=== PATIENT | female | born 1955 | race Caucasian/White ===

== ENCOUNTER 2025-03-04 21:43 | Inpatient (IN) ==
[2025-03-04 22:12] LABS: Hematocrit (blood only) 42.4 % (37.0-47.0); Hemoglobin 14.8 g/dl (12.0-16.0); Immature Granulocytes # (auto) 0.03 K/uL (0.01-0.20); Immature Granulocytes % (auto) 0.3 %; Mean Corpuscular Hemoglobin 30.0 pg (25.0-34.0); Mean Corpuscular Volume 85.8 fL (80.0-100.0); Platelet Count 284 K/uL (130-400); RDW Standard Deviation 44.2 fL (36.4-46.3); Red Blood Count 4.94 M/uL (4.20-5.40); White Blood Count 11.98 K/ul (4.8-10.8)
--- NOTE | 2025-03-04 22:12 | Emergency Department Note ---
History of Present Illness General Chief complaint: TIA Symptoms Stated complaint: STROKE SYMPTOMS Time Seen by Provider: 03/04/25 21:50 History of Present Illness This 69-year-old female that had a CVA last year currently on Brilinta who went to [facility] and had right-sided weakness and bilateral right-sided visual loss who regained mobility in her right side but the vision did not return who presents to the ER for strokelike symptoms for the past 2 hours. Patient states about 2 hours ago she had increasing numbness and weakness in her right side and right face. Patient also difficulty with ambulation. She continues to smoke. She is on Brilinta. Patient also complains of severe chest pain. She is on 2 L of oxygen at night for her COPD. No prior heart attack. Patient denies fever, chills, cough, congestion, new visual loss. Patient had difficulty with ambulation. She feels unsteady with her gait. This is also new. Patient denies abdominal pain, fever, chills, flulike illness. No history of heart attack. Home Medications Medication Instructions Recorded Confirmed Type cetirizine 10 mg capsule (Zyrtec) 10 mg PO DAILY 04/06/18 03/04/25 History pregabalin 150 mg capsule (Lyrica) 150 mg PO BID 04/06/18 03/04/25 History oxycodone 10 mg tablet 10 mg PO Q8 PRN Pain 04/10/18 03/04/25 History potassium chloride 10 mEq 10 meq PO DAILY 04/10/18 03/04/25 History tablet,extended release(part/cryst) (Klor-Con M) albuterol sulfate 90 mcg/actuation 2 puffs inhalation Q6H PRN trouble 05/30/18 03/04/25 History breath activated powder inhaler breathing diphenhydramine HCl 25 mg capsule 25 mg PO Q4H PRN itchiness 05/30/18 03/04/25 History (Benadryl) lactobacillus combination no.8 3 3,000 mmu cells PO DAILY 05/30/18 03/04/25 History billion cell capsule (Adult Probiotic) loperamide 2 mg capsule (Imodium 2 mg PO Q4H PRN loose stool 05/30/18 03/04/25 History A-D) cholecalciferol (vitamin D3) 50 4,000 units PO DAILY 05/24/19 03/04/25 History mcg (2,000 unit) capsule promethazine 25 mg tablet 25 mg PO Q6H PRN Nausea And 05/24/19 03/04/25 History Vomiting magnesium hydroxide 400 mg/5 mL 5 ml PO DAILY PRN Constipation 05/06/21 03/04/25 History oral suspension (Milk of Magnesia) sumatriptan succinate 6 mg/0.5 mL 6 mg (0.5 mL) subcut ONCE PRN 10/01/21 03/04/25 Rx subcutaneous pen injector migraine headache #1 mL hydrochlorothiazide 12.5 mg capsule 12.5 mg PO DAILY 11/02/21 03/04/25 History propranolol 120 mg capsule,24 240 mg (2 x 120 mg) PO HS #60 caps 12/13/21 03/04/25 Rx hr,extended release asciminib 20 mg tablet (Scemblix) 20 mg PO BID 11/22/22 03/04/25 History tizanidine 4 mg capsule 4 mg PO BID PRN spasms 12/19/23 03/04/25 History ticagrelor 90 mg tablet (Brilinta) 90 mg PO BID 06/13/24 03/04/25 History pravastatin 10 mg tablet 10 mg PO DAILY 02/06/25 03/04/25 History tirzepatide 2.5 mg/0.5 mL 7.5 mg subcut .Weekly 02/06/25 03/04/25 History subcutaneous pen injector (Mounjaro) fremanezumab-vfrm 225 mg/1.5 mL 225 mg subcut MONTHLY 03/04/25 03/04/25 History subcutaneous auto-injector (Ajovy) lorazepam 1 mg tablet (Ativan) 1 mg PO TID PRN Anxiety 03/04/25 03/04/25 History rabeprazole 20 mg PO BID 03/04/25 03/04/25 History Allergies Allergy/AdvReac Type Severity Reaction Status Date / Time bacitracin Allergy Severe blisters Verified 02/06/25 15:05 Cephalosporins Allergy Severe DYSPNEA Verified 02/06/25 15:05 hydromorphone Allergy Severe DYSPNEA Verified 02/06/25 15:05 Penicillins Allergy Severe HIVES;DYSPN Verified 02/06/25 15:05 EA Sulfa (Sulfonamide Allergy Severe HIVES;DYSPNEA Verified 02/06/25 15:05 Antibiotics) (PT STATES SHE HAS TAKEN CELEBREX W/O RXN) chlorpheniramine Allergy Unknown UNABLE TO Verified 02/06/25 15:05 URINATE nickel Allergy Unknown RASH Verified 02/06/25 15:05 phenylephrine Allergy Unknown UNABLE TO Verified 02/06/25 15:05 URINATE phenylpropanolamine Allergy Unknown UNABLE TO Verified 02/06/25 15:05 URINATE phenyltoloxamine Allergy Unknown UNABLE TO Verified 02/06/25 15:05 URINATE adhesive AdvReac Intermediate RASH;ITCHIN Verified 02/06/25 15:05 G aspirin AdvReac Mild STOMACH Verified 02/06/25 15:05 BURNING nilotinib [From Tasigna] AdvReac constipatio Verified 02/06/25 15:05 n Past Med/Surg History Problem List (Updated 03/05/25 @ 09:48 by Mahamed Mckeon MD) Depression with anxiety Right sided weakness Right sided numbness Homonymous 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 Chronic pain Current smoker Stroke-like symptoms Acute CVA (cerebrovascular accident) (Acute) History of bilateral total hip arthroplasty (Chronic) Hx of total knee arthroplasty (Chronic) History of chemotherapy (Chronic) Diastolic dysfunction (Chronic) Hyperlipidemia (Chronic) Hypertension (Chronic) Medical History Sepsis Intra-abdominal abscess Intra-abdominal abscess Hypokalemia Headache Headache Arthritis Stomach problems Pneumonia Bronchitis Asthma Intractable migraine with aura without status migrainosus Leukemia Opioid dependence Lumbar facet joint syndrome Postlaminectomy syndrome of lumbosacral region On home oxygen therapy Herpes zoster involving cervical dermatome Migraine Chronic myeloid leukemia Cervicalgia Chronic migraine Surgical History History of cholecystectomy History of lumbar laminectomy S/P ovarian cystectomy S/P tonsillectomy Family History (Updated 03/05/25 @ 09:41 by Mahamed Mckeon MD) Father , in his 40s of a brain tumor (uncertain type) Brain tumor Aunt Breast cancer Mother , in her early 90s without significant chronic illness No problems noted. Social History (Updated 03/05/25 @ 09:41 by Mahamed Mckeon MD) Smoking Status: Current every day smoker Tobacco Type: Cigarettes Age Started Using Tobacco: 11; packs per day: 0.5; Cigarettes Per Day: 0.5 pk/day; Hx Alcohol Use: No Hx Substance Use: No Preferred Language: American Communication Ability: Effective Visual Impairment: No Limitations Hearing Ability: Normal Geotechnician Required: No Beliefs That Will Affect Care: None marital status: Legally Current Living Situation: Family Current Living Situation Comment: Jyoti- daughter current occupational status: disabled current occupation: Stop working 1998 after a work incident Feels Safe at Home: Yes Safety Concerns: Feels Safe At This Time Assistive Devices: Denture - Upper, Denture - Lower, Oxygen - at Night and Walker Review of Systems A total of 10 systems reviewed and were otherwise negative Physical Exam Vital Signs Vital Signs - 24 hr 03/04/25 21:44 03/04/25 21:54 03/04/25 22:08 Temperature 37 C Temperature Source Oral Pulse Rate 85 80 81 Pulse Rate [Apical] Pulse Rate from SpO2 Sensor Respiratory Rate 22 Respiratory Effort / Characteristics Respiratory Depth Respiratory Pattern Blood Pressure 175/108 H Blood Pressure [Right Arm] Blood Pressure Mean 130 Blood Pressure Mean [Right Arm] Blood Pressure Position [Right Arm] Pulse Oximetry 95 Oxygen Delivery Method Room Air Oxygen Flow Rate Sepsis Recent Fever Within 48 Hours No Sepsis New/Unexplained Change in Mental Status No Sepsis Action Taken by Nursing No Action Required 03/04/25 22:09 03/04/25 22:10 03/04/25 22:10 Temperature 36.8 C Temperature Source Oral Pulse Rate Pulse Rate [Apical] 80 Pulse Rate from SpO2 Sensor Respiratory Rate 20 Respiratory Effort / Characteristics Non-Labored Spontaneous Respiratory Depth Normal Respiratory Pattern Regular Blood Pressure 173/95 H 173/95 H Blood Pressure [Right Arm] 173/95 H Blood Pressure Mean 116 116 Blood Pressure Mean [Right Arm] 121 Blood Pressure Position [Right Arm] Semi-fowlers Pulse Oximetry 91 Oxygen Delivery Method Room Air Oxygen Flow Rate Sepsis Recent Fever Within 48 Hours Sepsis New/Unexplained Change in Mental Status Sepsis Action Taken by Nursing 03/04/25 22:12 03/04/25 22:15 03/04/25 22:25 Temperature Temperature Source Pulse Rate 81 90 Pulse Rate [Apical] 79 Pulse Rate from SpO2 Sensor 81 78 Respiratory Rate 22 20 13 Respiratory Effort / Characteristics Non-Labored Spontaneous Respiratory Depth Normal Respiratory Pattern Regular Blood Pressure Blood Pressure [Right Arm] 169/93 H Blood Pressure Mean Blood Pressure Mean [Right Arm] 118 Blood Pressure Position [Right Arm] Semi-fowlers Pulse Oximetry 93 93 96 Oxygen Delivery Method Room Air Oxygen Flow Rate Sepsis Recent Fever Within 48 Hours Sepsis New/Unexplained Change in Mental Status Sepsis Action Taken by Nursing 03/04/25 22:40 03/04/25 22:48 03/04/25 22:55 Temperature Temperature Source Pulse Rate Pulse Rate [Apical] 77 78 76 Pulse Rate from SpO2 Sensor Respiratory Rate 20 15 14 Respiratory Effort / Characteristics Non-Labored Spontaneous Non-Labored Spontaneous Non-Labored Spontaneous Respiratory Depth Normal Normal Normal Respiratory Pattern Regular Regular Regular Blood Pressure Blood Pressure [Right Arm] 168/103 H 176/122 H 176/122 H Blood Pressure Mean Blood Pressure Mean [Right Arm] 124 140 140 Blood Pressure Position [Right Arm] Semi-fowlers Semi-fowlers Semi-fowlers Pulse Oximetry 100 100 95 Oxygen Delivery Method Room Air Room Air Room Air Oxygen Flow Rate Sepsis Recent Fever Within 48 Hours Sepsis New/Unexplained Change in Mental Status Sepsis Action Taken by Nursing 03/04/25 23:01 03/04/25 23:13 03/04/25 23:13 Temperature 36.8 C 36.8 C Temperature Source Oral Oral Pulse Rate Pulse Rate [Apical] 79 79 77 Pulse Rate from SpO2 Sensor Respiratory Rate 20 16 16 Respiratory Effort / Characteristics Non-Labored Spontaneous Non-Labored Spontaneous Respiratory Depth Normal Normal Respiratory Pattern Regular Regular Blood Pressure Blood Pressure [Right Arm] 174/100 H 142/104 H 174/100 H Blood Pressure Mean Blood Pressure Mean [Right Arm] 124 116 124 Blood Pressure Position [Right Arm] Semi-fowlers Semi-fowlers Semi-fowlers Pulse Oximetry 94 95 95 Oxygen Delivery Method Room Air Room Air Room Air Oxygen Flow Rate Sepsis Recent Fever Within 48 Hours Sepsis New/Unexplained Change in Mental Status Sepsis Action Taken by Nursing 03/04/25 23:28 03/04/25 23:43 03/04/25 23:43 Temperature 36.8 C 36.8 C 36.8 C Temperature Source Oral Oral Oral Pulse Rate Pulse Rate [Apical] 88 83 83 Pulse Rate from SpO2 Sensor Respiratory Rate 17 17 17 Respiratory Effort / Characteristics Non-Labored Spontaneous Non-Labored Spontaneous Non-Labored Spontaneous Respiratory Depth Normal Normal Normal Respiratory Pattern Regular Regular Regular Blood Pressure Blood Pressure [Right Arm] 186/82 H 160/90 H 148/87 H Blood Pressure Mean Blood Pressure Mean [Right Arm] 116 113 107 Blood Pressure Position [Right Arm] Semi-fowlers Semi-fowlers Semi-fowlers Pulse Oximetry 95 95 95 Oxygen Delivery Method Room Air Room Air Room Air Oxygen Flow Rate Sepsis Recent Fever Within 48 Hours Sepsis New/Unexplained Change in Mental Status Sepsis Action Taken by Nursing 03/04/25 23:58 03/05/25 00:13 03/05/25 00:28 Temperature 36.8 C 36.7 C 36.7 C Temperature Source Oral Oral Oral Pulse Rate Pulse Rate [Apical] 81 79 83 Pulse Rate from SpO2 Sensor Respiratory Rate 16 16 17 Respiratory Effort / Characteristics Non-Labored Spontaneous Non-Labored Spontaneous Non-Labored Spontaneous Respiratory Depth Normal Normal Normal Respiratory Pattern Regular Regular Regular Blood Pressure Blood Pressure [Right Arm] 131/92 154/95 H 134/85 Blood Pressure Mean Blood Pressure Mean [Right Arm] 105 114 101 Blood Pressure Position [Right Arm] Semi-fowlers Semi-fowlers Semi-fowlers Pulse Oximetry 95 92 97 Oxygen Delivery Method Room Air Room Air Nasal Cannula Oxygen Flow Rate 2 Sepsis Recent Fever Within 48 Hours Sepsis New/Unexplained Change in Mental Status Sepsis Action Taken by Nursing 03/05/25 00:43 03/05/25 00:58 03/05/25 01:13 Temperature 36.7 C 36.7 C 36.7 C Temperature Source Oral Oral Oral Pulse Rate Pulse Rate [Apical] 81 82 83 Pulse Rate from SpO2 Sensor Respiratory Rate 17 17 17 Respiratory Effort / Characteristics Non-Labored Spontaneous Non-Labored Spontaneous Non-Labored Spontaneous Respiratory Depth Normal Normal Normal Respiratory Pattern Regular Regular Regular Blood Pressure Blood Pressure [Right Arm] 154/94 H 149/93 H 141/83 H Blood Pressure Mean Blood Pressure Mean [Right Arm] 114 111 102 Blood Pressure Position [Right Arm] Semi-fowlers Semi-fowlers Semi-fowlers Pulse Oximetry 97 97 98 Oxygen Delivery Method Nasal Cannula Nasal Cannula Nasal Cannula Oxygen Flow Rate 2 2 2 Sepsis Recent Fever Within 48 Hours Sepsis New/Unexplained Change in Mental Status Sepsis Action Taken by Nursing 03/05/25 01:43 03/05/25 02:06 03/05/25 02:13 Temperature 36.7 C 36.7 C Temperature Source Oral Oral Pulse Rate 78 Pulse Rate [Apical] 81 76 Pulse Rate from SpO2 Sensor Respiratory Rate 17 16 Respiratory Effort / Characteristics Non-Labored Spontaneous Non-Labored Spontaneous Respiratory Depth Normal Normal Respiratory Pattern Regular Regular Blood Pressure Blood Pressure [Right Arm] 132/93 147/85 H Blood Pressure Mean Blood Pressure Mean [Right Arm] 106 105 Blood Pressure Position [Right Arm] Semi-fowlers Semi-fowlers Pulse Oximetry 98 97 Oxygen Delivery Method Nasal Cannula Nasal Cannula Oxygen Flow Rate 2 2 Sepsis Recent Fever Within 48 Hours Sepsis New/Unexplained Change in Mental Status Sepsis Action Taken by Nursing 03/05/25 02:43 Temperature 36.7 C Temperature Source Oral Pulse Rate Pulse Rate [Apical] 73 Pulse Rate from SpO2 Sensor Respiratory Rate 20 Respiratory Effort / Characteristics Non-Labored Spontaneous Respiratory Depth Normal Respiratory Pattern Regular Blood Pressure Blood Pressure [Right Arm] 133/76 Blood Pressure Mean Blood Pressure Mean [Right Arm] 95 Blood Pressure Position [Right Arm] Semi-fowlers Pulse Oximetry 96 Oxygen Delivery Method Nasal Cannula Oxygen Flow Rate 2 Sepsis Recent Fever Within 48 Hours Sepsis New/Unexplained Change in Mental Status Sepsis Action Taken by Nursing VITALS: Vitals are noted on the nurse's note and reviewed by myself. Vital signs reviewed. GENERAL: Pleasant female with daughter present who assists with the history, in no acute distress, nondiaphoretic, well-developed well-nourished. SKIN: The skin was without rashes, erythema, edema, or bruising. There is no tenting of the skin. Capillary reflex less than 2 seconds. HEAD: Normocephalic atraumatic. EARS: External auditory canals clear EYES: Pupils equal round and reactive to light and accommodation. Conjunctivae without injection, sclerae without icterus. Extraocular movements intact. NOSE: Patent, no discharge. MOUTH: Mucous membranes moist. Pharynx without erythema or exudate. Uvula midline. Airway patent. Tongue does not deviate. NECK: Supple without nuchal rigidity. No lymphadenopathy. No thyromegaly. Cervical spine is nontender. No JVD. HEART: Regular rate and rhythm LUNGS: Clear to auscultation bilaterally without wheezes, rales or rhonchi. No retractions or accessory muscle use. ABDOMEN: Positive bowel sounds x 4. Normal tympanic percussion. Soft, nontender, without masses or organomegaly. Florian sign negative. No guarding or rebound tenderness. No CVA tenderness MUSCULOSKELETAL: No muscle atrophy, erythema, or edema noted. Right sided weakness to the arm and leg. NEURO: Patient was alert and oriented to person place and time. Patient's right arm does drift but does not touch the bed. Patient's left leg drifts and touches the bed. Cerebellar exam intact. No pronator drift. Decreased sensation to the right side of the face arm and leg, the rest of the body with normal sensation to light and sharp touch. No other focal neurological deficits. NIH of 4 Course Administered Medications Acetaminophen (Acetaminophen 325 Mg Tab) 650 mg PO Q4H PRN PRN Reason: Pain or Fever Stop: 04/04/25 04:00 Last Admin: 03/05/25 13:22 Dose: 650 mg Documented By: TUTUK Cetirizine HCl (Cetirizine Hcl 10 Mg Tablet) 10 mg PO DAILY KENNEY Stop: 04/04/25 08:59 Last Admin: 03/05/25 09:03 Dose: 10 mg Documented By: MARGIE Insulin Aspart (Insulin Aspart Per Unit Charge) 0 units SC Q6 KENNEY Stop: 04/04/25 05:59 Last Admin: 03/06/25 00:42 Dose: Not Given Documented By: TP Co-signed By: MAURICE Admin: 03/05/25 17:51 Dose: Not Given Documented By: Admin: 03/05/25 12:16 Dose: Not Given Documented By: Admin: 03/05/25 06:42 Dose: Not Given Documented By: TP Co-signed By: LEÓN Lorazepam (Lorazepam 1 Mg Tab) 1 mg PO TID PRN PRN Reason: Anxiety Stop: 04/04/25 20:42 Last Admin: 03/05/25 21:41 Dose: 1 mg Documented By: TP Oxycodone HCl (Oxycodone Hcl Ir 5 Mg Tab (Immediate Release)) 5 mg PO Q8 PRN PRN Reason: Pain Stop: 03/19/25 12:29 Last Admin: 03/05/25 21:41 Dose: 5 mg Documented By: Admin: 03/05/25 14:00 Dose: 5 mg Documented By: TUTUK Pravastatin Sodium (Pravastatin Sod 10 Mg Tab) 10 mg PO DAILY KENNEY Stop: 04/04/25 08:59 Last Admin: 03/05/25 09:03 Dose: 10 mg Documented By: TUTUK Pregabalin (Pregabalin 150 Mg Cap) 150 mg PO BID KENNEY Stop: 04/04/25 08:59 Last Admin: 03/05/25 20:15 Dose: 150 mg Documented By: Admin: 03/05/25 09:03 Dose: 150 mg Documented By: MARGIE Propranolol HCl (Propranolol Hcl 60 Mg [place]) 240 mg PO HS KENNEY Stop: 04/04/25 20:59 Last Admin: 03/05/25 20:15 Dose: 240 mg Documented By: TP Discontinued Medications Acetaminophen (Acetaminophen 1000 Mg/100 Ml Iv) Confirm Administered Dose 1,000 mg IV .STK-MED ONE Stop: 03/04/25 23:00 Last Admin: 03/04/25 23:02 Dose: Not Given Documented By: SHIVAM Acetaminophen/Butalbital/Caffeine (Butalbital/Acetamin/Caffeine Tab) 1 tab PO NOW STA Stop: 03/05/25 14:29 Last Admin: 03/05/25 14:52 Dose: 1 tab Documented By: MARGIE Gadobutrol (Gadobutrol 65ml Vial) 8 ml IV ONCE ONE Stop: 03/05/25 05:08 Last Admin: 03/05/25 05:07 Dose: 8 ml Documented By: LIIBA Tenecteplase 20 mg/ Syringe 4 mls @ 0 mls/min IV NOW STA Stop: 03/04/25 22:55 Last Admin: 03/04/25 23:13 Dose: 60 mls/min Documented By: PAM Co-signed By: BRADLEY Acetaminophen (Ofirmev) 1,000 mg in 100 mls @ 400 mls/hr IV NOW STA Stop: 03/04/25 23:14 Last Infusion: 03/04/25 23:24 Dose: Infused Documented By: Admin: 03/04/25 23:02 Dose: 400 mls/hr Documented By: SHIVAM Sodium Chloride (Nss) 500 mls @ 999 mls/hr IV .Q31M ONE Stop: 03/04/25 23:43 Last Infusion: 03/04/25 23:58 Dose: Infused Documented By: Admin: 03/04/25 23:34 Dose: 999 mls/hr Documented By: PAM Promethazine HCl (Phenergan) 25 mg in 51 mls @ 204 mls/hr IV NOW STA Stop: 03/04/25 23:52 Last Infusion: 03/05/25 00:13 Dose: Infused Documented By: Admin: 03/04/25 23:58 Dose: 204 mls/hr Documented By: PAM Sodium Chloride (Nss) 1,000 mls @ 125 mls/hr IV .Q8H KENNEY Stop: 03/08/25 03:43 Last Admin: 03/05/25 04:58 Dose: Not Given Documented By: TP Ioversol (Optiray 320 125ml) 120 ml IV ONCE ONE Stop: 03/04/25 22:16 Last Admin: 03/04/25 22:15 Dose: 120 ml Documented By: MCKAYLA Morphine Sulfate (Morphine Sulfate 4 Mg/Ml 1 Ml Carp\Vial) 4 mg IV NOW STA Stop: 03/04/25 23:29 Last Admin: 03/04/25 23:33 Dose: 4 mg Documented By: PAM Morphine Sulfate (Morphine Sulfate 4 Mg/Ml 1 Ml Carp\Vial) 4 mg IV NOW STA Stop: 03/05/25 00:18 Last Admin: 03/05/25 00:24 Dose: 4 mg Documented By: PAM Morphine Sulfate (Morphine Sulfate 4 Mg/Ml 1 Ml Carp\Vial) 4 mg IV NOW STA Stop: 03/05/25 02:17 Last Admin: 03/05/25 02:27 Dose: 4 mg Documented By: PAM Ondansetron HCl (Ondansetron Inj 2 Mg/Ml 2 Ml Vial) 4 mg IV NOW STA Stop: 03/04/25 23:01 Last Admin: 03/04/25 23:04 Dose: 4 mg Documented By: SHIVAM Ondansetron HCl (Ondansetron Inj 2 Mg/Ml 2 Ml Vial) 4 mg IV NOW STA Stop: 03/04/25 23:29 Last Admin: 03/04/25 23:37 Dose: Not Given Documented By: PAM Oxycodone HCl (Oxycodone Hcl Ir 5 Mg Tab (Immediate Release)) 10 mg PO Q8 PRN PRN Reason: Pain Stop: 03/19/25 03:43 Last Admin: 03/05/25 04:34 Dose: 10 mg Documented By: FATOUMATA Pregabalin (Pregabalin 150 Mg Cap) 150 mg PO NOW STA Stop: 03/05/25 04:01 Last Admin: 03/05/25 04:34 Dose: 150 mg Documented By: FATOUMATA Critical Care Time Critical Care Time: Yes Total Critical Care Time: 65 I have personally spent 65 minutes of critical care time in the direct management of this patient. This includes bedside care, interpretation of diagnostic studies, and testing, discussion with consultants, patient, and family members, and other required patient management activities. This 65 minutes is in excess of all separately billable procedures. Medical Decision Making Medical Records Attestation: I reviewed the patient's medical records. Home Medications Current Medication List: was personally reviewed by me Laboratory Data Attestation: I reviewed the patient's lab results. 03/05/25 06:02 03/05/25 06:02 Lab Results 03/04/25 03/04/25 03/04/25 Range/Units 21:52 21:54 21:55 WBC 11.98 H (4.8-10.8) K/ul RBC 4.94 (4.20-5.40) M/uL Hgb 14.8 (12.0-16.0) g/dl POC Hgb 15.0 (12.0-16.0) g/dl Hct 42.4 (37.0-47.0) % POC Hct 44 (37-47) % MCV 85.8 (80.0-100.0) fL MCH 30.0 (25.0-34.0) pg MCHC 34.9 (32.0-36.0) g/dL RDW Std Deviation 44.2 (36.4-46.3) fL RDW Coeff of Fan 14.2 (11.5-14.5) % Plt Count 284 (130-400) K/uL MPV 12.1 (9.4-12.4) fL Immature Gran % (Auto) 0.3 % Neut % (Auto) 67.5 % Lymph % (Auto) 18.3 % [place] % (Auto) 9.8 % Eos % (Auto) 3.0 % Baso % (Auto) 1.1 % Neut # (Auto) 8.10 H (1.40-6.50) K/uL Lymph # (Auto) 2.19 (1.20-3.40) K/uL [place] # (Auto) 1.17 H (0.11-0.59) K/uL Eos # (Auto) 0.36 (0.00-0.50) K/uL Baso # (Auto) 0.13 (0.00-0.20) K/uL Immature Gran # (Auto) 0.03 (0.01-0.20) K/uL PT 10.4 (9.0-12.0) Seconds INR 1.0 (0.9-1.1) APTT 26 (21-31) Seconds PTT Ratio 1.0 POC Sodium 138 (135-144) mmol/L Sodium 137 (136-145) mmol/L POC Potassium 3.8 (3.3-5.0) mmol/L Potassium 3.7 (3.5-5.1) mmol/L POC Chloride 96 L (101-112) mmol/L Chloride 97 L (98-107) mmol/L Carbon Dioxide 33 H (21-32) mmol/L POC Total CO2 31 (24-31) mmol/L Anion Gap 7 (3-11) POC Anion Gap 17.0 (16-25) mmol/L POC BUN 13 (7-18) mg/dl BUN 13 (6-23) mg/dl Creatinine 1.11 (0.6-1.2) mg/dl POC Creatinine 1.2 (0.6-1.3) mg/dl Est Cr Clr Drug Dosing 50.0 ml/min eGFR 53.47 BUN/Creatinine Ratio 11.7 (10-20) Glucose 133 H (70-99(Fasting)) mg/dl POC Glucose 121 H (70-99) mg/dl POC Glucose (other) 131 H (70-99) mg/dl Calcium 9.9 (8.6-10.3) mg/dl POC Ioniz Calcium Gabo 1.16 (1.12-1.32) mmol/l Magnesium 1.8 (1.7-2.4) mg/dl Total Bilirubin 0.5 (0.2-1.0) mg/dl AST 15 (13-39) U/L ALT 10 (7-52) U/L Alkaline Phosphatase 92 (34-104) U/L Troponin I High Sens 4.2 (0-14) pg/ml Total Protein 7.7 (6.0-8.3) gm/dl Albumin 4.0 (3.4-5.0) gm/dl Globulin 3.7 (2.5-4.0) gm/dl Albumin/Globulin Ratio 1.1 (0.9-2) Urine Color Urine Appearance (Clear) Urine pH (4.5-7.5) Ur Specific [place] (1.000-1.030) Urine Protein (Negative) Urine Glucose (UA) (Negative) Urine Ketones (Negative) Urine Blood (Negative) Urine Nitrite (Negative) Urine Bilirubin (Negative) Urine Urobilinogen (Negative) Ur Leukocyte Esterase (Negative) Urine Comment Blood Type Antibody Screen 03/04/25 03/05/25 Range/Units 21:57 02:29 WBC (4.8-10.8) K/ul RBC (4.20-5.40) M/uL Hgb (12.0-16.0) g/dl POC Hgb (12.0-16.0) g/dl Hct (37.0-47.0) % POC Hct (37-47) % MCV (80.0-100.0) fL MCH (25.0-34.0) pg MCHC (32.0-36.0) g/dL RDW Std Deviation (36.4-46.3) fL RDW Coeff of Fan (11.5-14.5) % Plt Count (130-400) K/uL MPV (9.4-12.4) fL Immature Gran % (Auto) % Neut % (Auto) % Lymph % (Auto) % [place] % (Auto) % Eos % (Auto) % Baso % (Auto) % Neut # (Auto) (1.40-6.50) K/uL Lymph # (Auto) (1.20-3.40) K/uL [place] # (Auto) (0.11-0.59) K/uL Eos # (Auto) (0.00-0.50) K/uL Baso # (Auto) (0.00-0.20) K/uL Immature Gran # (Auto) (0.01-0.20) K/uL PT (9.0-12.0) Seconds INR (0.9-1.1) APTT (21-31) Seconds PTT Ratio POC Sodium (135-144) mmol/L Sodium (136-145) mmol/L POC Potassium (3.3-5.0) mmol/L Potassium (3.5-5.1) mmol/L POC Chloride (101-112) mmol/L Chloride (98-107) mmol/L Carbon Dioxide (21-32) mmol/L POC Total CO2 (24-31) mmol/L Anion Gap (3-11) POC Anion Gap (16-25) mmol/L POC BUN (7-18) mg/dl BUN (6-23) mg/dl Creatinine (0.6-1.2) mg/dl POC Creatinine (0.6-1.3) mg/dl Est Cr Clr Drug Dosing ml/min eGFR BUN/Creatinine Ratio (10-20) Glucose (70-99(Fasting)) mg/dl POC Glucose (70-99) mg/dl POC Glucose (other) (70-99) mg/dl Calcium (8.6-10.3) mg/dl POC Ioniz Calcium [place] (1.12-1.32) mmol/l Magnesium (1.7-2.4) mg/dl Total Bilirubin (0.2-1.0) mg/dl AST (13-39) U/L ALT (7-52) U/L Alkaline Phosphatase (34-104) U/L Troponin I High Sens (0-14) pg/ml Total Protein (6.0-8.3) gm/dl Albumin (3.4-5.0) gm/dl Globulin (2.5-4.0) gm/dl Albumin/Globulin Ratio (0.9-2) Urine Color Yellow Urine Appearance Clear (Clear) Urine pH 5.5 (4.5-7.5) Ur Specific [place] > 1.045 H (1.000-1.030) Urine Protein Negative (Negative) Urine Glucose (UA) Negative (Negative) Urine Ketones Negative (Negative) Urine Blood Negative (Negative) Urine Nitrite Negative (Negative) Urine Bilirubin Negative (Negative) Urine Urobilinogen Negative (Negative) Ur Leukocyte Esterase Negative (Negative) Urine Comment Blood Type B Positive Antibody Screen NEGATIVE Imaging Data Attestation: I personally reviewed and interpreted this imaging study as follows: Radiologist's Impression: Chest CTA 03/04/25 21:55 Exam(s): CTA CHEST IV Amt: 120 ml [id number] EXAM: CT Angiography Chest With Intravenous Contrast CLINICAL HISTORY: Reason for exam: PE. TECHNIQUE: Axial computed tomographic angiography images of the chest with intravenous contrast. CTDI is 36.31 mGy and DLP is 1824.73 mGy-cm. Automated exposure control was utilized for the study. A dose lowering technique was utilized adhering to the principles of ALARA. MIP reconstructed images were created and reviewed. COMPARISON: No relevant prior studies available. FINDINGS: Pulmonary arteries: Unremarkable. No pulmonary embolism. Aorta: No acute findings. No thoracic aortic aneurysm. Lungs: Unremarkable. No mass. No consolidation. Pleural space: Unremarkable. No significant effusion. No pneumothorax. Heart: Unremarkable. No cardiomegaly. No significant pericardial effusion. No evidence of RV dysfunction. Bones/joints: No acute fracture. No dislocation. Soft tissues: Unremarkable. Lymph nodes: Unremarkable. No enlarged lymph nodes. IMPRESSION: Normal chest CTA. No pulmonary embolism. Electronically signed by: Donato Ravi MD 03/04/25 22:58 PM Chest X-Ray 03/04/25 21:55 Exam(s): XR CXR 1 VIEW EXAM: XR Chest, 1 View CLINICAL HISTORY: Reason for exam: neuro deficit, acute stroke suspected. TECHNIQUE: Frontal view of the chest. COMPARISON: No relevant prior studies available. FINDINGS: Lungs: Unremarkable. No consolidation. Pleural space: Unremarkable. No pneumothorax. Heart: Unremarkable. No cardiomegaly. Mediastinum: Unremarkable. Normal mediastinal contour. Bones/joints: Unremarkable. No acute fracture. IMPRESSION: Normal chest x-ray. Electronically signed by: Donato Ravi MD 03/05/25 00:[address] 03/04/25 21:55 CR Exam(s): CT HEAD Without Contrast EXAM: CT Head Without Intravenous Contrast CLINICAL HISTORY: Reason for exam: neuro deficit, acute stroke suspected. TECHNIQUE: Axial computed tomography images of the head/brain without intravenous contrast. CTDI is 36.31 mGy and DLP is 1824.73 mGy-cm. Automated exposure control was utilized for the study. A dose lowering technique was utilized adhering to the principles of ALARA. COMPARISON: 03/01/2014 FINDINGS: Brain: Chronic appearing left occipital lobe infarct. No hemorrhage. No significant white matter disease. Ventricles: Unremarkable. No ventriculomegaly. Bones/joints: Unremarkable. No acute fracture. Soft tissues: Unremarkable. Sinuses: Unremarkable as visualized. No acute sinusitis. Mastoid air cells: Unremarkable as visualized. No mastoid effusion. IMPRESSION: No acute findings in the head/brain. Chronic left occipital lobe and Communications: Call Doctor Stroke Electronically signed by: Donato Ravi MD 03/04/25 22:32 PM Head CTA 03/04/25 21:55 CR Exam(s): CTA HEAD With Contrast IV Amt: 120 ml EXAM: CT Angiography Head With Intravenous Contrast CLINICAL HISTORY: Reason for exam: neuro deficit, acute stroke suspected. TECHNIQUE: Axial computed tomographic angiography images of the head with intravenous contrast. CTDI is 36.31 mGy and DLP is 1824.73 mGy-cm. Automated exposure control was utilized for the study. A dose lowering technique was utilized adhering to the principles of ALARA. MIP reconstructed images were created and reviewed. CONTRAST: Patient received 120 ml [id number] of IV contrast COMPARISON: No relevant prior studies available. FINDINGS: Right internal carotid artery: No acute findings. Intracranial segment is patent with no significant stenosis. No aneurysm. Right anterior cerebral artery: Unremarkable. No occlusion or significant stenosis. No aneurysm. Right middle cerebral artery: Unremarkable. No occlusion or significant stenosis. No aneurysm. Right posterior cerebral artery: Unremarkable. No occlusion or significant stenosis. No aneurysm. Right vertebral artery: Unremarkable as visualized. Left internal carotid artery: No acute findings. Intracranial segment is patent with no significant stenosis. No aneurysm. Left anterior cerebral artery: Unremarkable. No occlusion or significant stenosis. No aneurysm. Left middle cerebral artery: Unremarkable. No occlusion or significant stenosis. No aneurysm. Left posterior cerebral artery: Unremarkable. No occlusion or significant stenosis. No aneurysm. Left vertebral artery: Unremarkable as visualized. Basilar artery: Unremarkable. No occlusion or significant stenosis. No aneurysm. IMPRESSION: Normal head CTA. Communications: Call Doctor Stroke Electronically signed by: Donato Ravi MD 03/04/25 22:27 PM Neck CTA 03/04/25 21:55 CR Exam(s): CTA NECK With Contrast IV Amt: 120 ml [id number] EXAM: CT Angiography Neck With Intravenous Contrast CLINICAL HISTORY: Reason for exam: neuro deficit, acute stroke suspected. TECHNIQUE: Routine carotid CT angiography protocol was performed with intravenous contrast. NASCET criteria using the distal ICAs for comparison were used for evaluation of stenoses. CTDI is 36.31 mGy and DLP is 1824.73 mGy-cm. Automated exposure control was utilized for the study. A dose lowering technique was utilized adhering to the principles of ALARA. MIP reconstructed images were created and reviewed. CONTRAST: Patient received 120 ml of IV contrast COMPARISON: None. FINDINGS: VASCULATURE: Right common carotid artery: Unremarkable. No occlusion or significant stenosis. No dissection. Right internal carotid artery: Unremarkable. Extracranial segment is patent with no occlusion or significant stenosis. No dissection. Right external carotid artery: Unremarkable. No occlusion. Right vertebral artery: Unremarkable. No occlusion or significant stenosis. No dissection. Left common carotid artery: Unremarkable. No occlusion or significant stenosis. No dissection. Left internal carotid artery: Unremarkable. Extracranial segment is patent with no occlusion or significant stenosis. No dissection. Left external carotid artery: Unremarkable. No occlusion. Left vertebral artery: Unremarkable. No occlusion or significant stenosis. No dissection. NECK: Bones/joints: Unremarkable. No acute fracture. Soft tissues: Unremarkable. Lung apices: Clear. CAROTID STENOSIS REFERENCE USING NASCET CRITERIA: % ICA stenosis = (1 - narrowest ICA diameter/diameter of distal cervical ICA) x 100. Mild - <50% stenosis. Moderate - 50-69% stenosis. Severe - 70-94% stenosis. Near occlusion - 95-99% stenosis. Occluded - 100% stenosis. IMPRESSION: Negative CTA neck. Communications: Call Doctor Stroke Electronically signed by: Donato Ravi MD 03/04/25 22:28 PM MDM Narrative Prior records/ancillary studies reviewed and summarized above. Nursing notes reviewed. Additional history obtained from family. The patient's history was concerning for strokelike symptoms. Differential diagnosis: Etiologies such as CVA, metabolic, infection, hypo/hyperglycemia, electrolyte abnormalities, cardiac sources, intracerebral event, toxicologic, neurologic, as well as others were entertained. Physical examination: As above. ER treatment provided: IV Lock Patient was immediately seen at 2150 in B1 by myself. Stroke alert was initiated. An order was placed for continuous cardiac monitoring. The monitor shows a rate of 60-100 with a sinus rhythm per my interpretation. Stroke alert was immediately initiated and patient was sent down for CAT scan Telestroke was consulted and recommends TNK. The telestroke provider was made clear that she is on Brilinta and states it is safe to give the TNK. The delay in administering the TNK was getting the telestroke doctor on the line. It took quite some time for the resource protection specialist to get that telestroke doctor on the telestroke monitor. NIH of 4: Right leg drift and touches the bed, right arm drift but does not touch the bed, patient has decreased sensation in the right side of the face arm and leg and has difficulty ambulating. On reassessment the patient felt better. Diagnostics interpretation by me: ECG: Ordered for stroke symptoms EKG: Normal sinus, poor baseline, first-degree block, no acute ST-T wave changes, rate 80. Impression normal sinus rhythm personally AV block independently interpreted by myself The labs Independently Interpreted by myself revealed stable platelet count Stable H&H, normal platelet count Mild hyperglycemia without DKA Imaging studies: Imaging was reviewed and read by radiology Consultation: A consultation was placed with the telestroke neurologist at [facility], Dr Perkins . The case was discussed and diagnostics were reviewed. The patient was evaluated in the ER for further treatment. He recommends TNK and medical admission for stroke workup. I did ask several times about the TNK as the patient was on Brilinta and the neurologist says it is fine to give the TNK. He states to hold any antiplatelet medication for the next 24 hours. Medicine was consulted case discussed. Patient admitted to the medical service for stroke workup. Exam and history seem consistent with acute CVA. Telestroke neurology recommends TNK. Patient is agreeable. She was reassessed multiple times. She was given Tylenol for headache prior to the TN K and given morphine for her chronic pain to her legs and back. Blood pressure improved. Medicine was consulted case discussed. Patient be admitted to the medical service. Patient and family are agreeable. By the evaluation outlined above emergent etiologies such as infection, electrolyte abnormalities, toxologic, abnormalities blood glucose, metabolic, as well as others were deemed relatively unlikely. The pt informed about the findings as listed above. All questions were answered and pleased with the treatment. The chart was completed utilizing [employer] Speech voice recognition software. Grammatical errors, random word insertions, pronoun errors, and incomplete sentences are an occassional consequence of this system due to software limitations, ambient noise, and hardware issues. Any formal questions or concerns about the content, text, or information contained within the body of this dictation should be directly addressed to the physician communications assistant for clarification. Impression & Plan Acute CVA (cerebrovascular accident) Discharge Plan Visit Data Chief Complaint: TIA Symptoms Stated Complaint: STROKE SYMPTOMS ED Provider: Ronnie Lopez ED Midlevel Provider: Ruth Haywood Discharge Problem: Acute CVA (cerebrovascular accident) Patient Disposition: Admitted As Inpatient Condition: Fair Discharge Instructions Interventions: ED Discharge Assessment Last Done: 03/05/25 03:15 Addendum March 06, 2025 03:36 HPI: The patient is a 69-year-old woman with a past medical history of tobacco use, hypertension, hyperlipidemia, CAD on Brilinta, history of CVA with right- sided weakness without residual weakness but with residual vision deficits who presents emergency department via EMS for new right sided weakness and loss of balance with last known well of 1999. AP: Stroke alert was activated. EKG without overt acute ischemia. CXR negative for acute cardiopulmonary process per my personal preliminary review/interpretation. CT of the head and CT of the head and neck were performed and did not demonstrate ICH, acute ischemia or severe narrowing or occlusion of large vessels. CTA of the chest was also performed and was negative for PE or acute aortic pathology. WBC 11.9 K, nonspecific. H/H and platelets within normal limits. Chemistry without metabolic acidosis. Electrolytes and LFTs unremarkable. High-sensitivity troponin 4.2, within normal limits. AMELIA Haywood reviewed patient's case with Dr. Perkins, [facility] telestroke neurology who evaluated the patient via the telestroke monitor. Given the patient's deficits with last known well within TNK window, and Brilinta is not a definitive contraindication, TNK was recommended. Patient did consent and TNK was administered. Blood pressure remained within appropriate range. The patient was admitted to the hospitalist service and ICU for further management. I was consulted by the Advanced Practice Provider and was substantively involved in the patient's visit.This includes aspects of the HPI, MDM, diagnostic interpretations, and disposition/plan. I discussed the case with the AMELIA and agree with the findings and plan as documented in AMELIA Haywood's note.
[2025-03-04] MEDS: OPTIRAY 320 125ml IV ONE (22:15)
--- NOTE | 2025-03-04 22:28 | CT Scan Report ---
Exam(s): CTA HEAD With Contrast IV Amt: 120 ml [id number] EXAM: CT Angiography Head With Intravenous Contrast CLINICAL HISTORY: Reason for exam: neuro deficit, acute stroke suspected. TECHNIQUE: Axial computed tomographic angiography images of the head with intravenous contrast. CTDI is 36.31 mGy and DLP is 1824.73 mGy-cm. Automated exposure control was utilized for the study. A dose lowering technique was utilized adhering to the principles of ALARA. MIP reconstructed images were created and reviewed. CONTRAST: Patient received 120 ml [id number] of IV contrast COMPARISON: No relevant prior studies available. FINDINGS: Right internal carotid artery: No acute findings. Intracranial segment is patent with no significant stenosis. No aneurysm. Right anterior cerebral artery: Unremarkable. No occlusion or significant stenosis. No aneurysm. Right middle cerebral artery: Unremarkable. No occlusion or significant stenosis. No aneurysm. Right posterior cerebral artery: Unremarkable. No occlusion or significant stenosis. No aneurysm. Right vertebral artery: Unremarkable as visualized. Left internal carotid artery: No acute findings. Intracranial segment is patent with no significant stenosis. No aneurysm. Left anterior cerebral artery: Unremarkable. No occlusion or significant stenosis. No aneurysm. Left middle cerebral artery: Unremarkable. No occlusion or significant stenosis. No aneurysm. Left posterior cerebral artery: Unremarkable. No occlusion or significant stenosis. No aneurysm. Left vertebral artery: Unremarkable as visualized. Basilar artery: Unremarkable. No occlusion or significant stenosis. No aneurysm. IMPRESSION: Normal head CTA. Communications: Call Doctor Stroke Electronically signed by: Donato Ravi MD 03/04/25 22:27 PM
[2025-03-04 22:29] LABS: Alanine Aminotransferase 10.0 U/L (7-52); Albumin Globulin Ratio 1.1 (0.9-2); Alkaline Phosphatase 92.0 U/L (34-104); Anion Gap 7.0 (3-11); Bilirubin,Total 0.5 mg/dl (0.2-1.0); Blood Urea Nitrogen 13.0 mg/dl (6-23); Calcium 9.9 mg/dl (8.6-10.3); Carbon Dioxide 33.0 mmol/L (21-32); Chloride 97.0 mmol/L (98-107); Creatinine Clr Calc Pharmacy 50.0 ml/min; Globulin 3.7 gm/dl (2.5-4.0); Glucose 133.0 mg/dl (70-99(Fasting)); Magnesium 1.8 mg/dl (1.7-2.4); Potassium 3.7 mmol/L (3.5-5.1); Sodium 137.0 mmol/L (136-145); Total Protein 7.7 gm/dl (6.0-8.3)
--- NOTE | 2025-03-04 22:29 | CT Scan Report ---
Exam(s): CTA NECK With Contrast IV Amt: 120 ml [id number] EXAM: CT Angiography Neck With Intravenous Contrast CLINICAL HISTORY: Reason for exam: neuro deficit, acute stroke suspected. TECHNIQUE: Routine carotid CT angiography protocol was performed with intravenous contrast. NASCET criteria using the distal ICAs for comparison were used for evaluation of stenoses. CTDI is 36.31 mGy and DLP is 1824.73 mGy-cm. Automated exposure control was utilized for the study. A dose lowering technique was utilized adhering to the principles of ALARA. MIP reconstructed images were created and reviewed. CONTRAST: Patient received 120 ml [id number] of IV contrast COMPARISON: None. FINDINGS: VASCULATURE: Right common carotid artery: Unremarkable. No occlusion or significant stenosis. No dissection. Right internal carotid artery: Unremarkable. Extracranial segment is patent with no occlusion or significant stenosis. No dissection. Right external carotid artery: Unremarkable. No occlusion. Right vertebral artery: Unremarkable. No occlusion or significant stenosis. No dissection. Left common carotid artery: Unremarkable. No occlusion or significant stenosis. No dissection. Left internal carotid artery: Unremarkable. Extracranial segment is patent with no occlusion or significant stenosis. No dissection. Left external carotid artery: Unremarkable. No occlusion. Left vertebral artery: Unremarkable. No occlusion or significant stenosis. No dissection. NECK: Bones/joints: Unremarkable. No acute fracture. Soft tissues: Unremarkable. Lung apices: Clear. CAROTID STENOSIS REFERENCE USING NASCET CRITERIA: % ICA stenosis = (1 - narrowest ICA diameter/diameter of distal cervical ICA) x 100. Mild - <50% stenosis. Moderate - 50-69% stenosis. Severe - 70-94% stenosis. Near occlusion - 95-99% stenosis. Occluded - 100% stenosis. IMPRESSION: Negative CTA neck. Communications: Call Doctor Stroke Electronically signed by: Donato Ravi MD 03/04/25 22:28 PM
--- NOTE | 2025-03-04 22:34 | CT Scan Report ---
Exam(s): CT HEAD Without Contrast EXAM: CT Head Without Intravenous Contrast CLINICAL HISTORY: Reason for exam: neuro deficit, acute stroke suspected. TECHNIQUE: Axial computed tomography images of the head/brain without intravenous contrast. CTDI is 36.31 mGy and DLP is 1824.73 mGy-cm. Automated exposure control was utilized for the study. A dose lowering technique was utilized adhering to the principles of ALARA. COMPARISON: 03/01/2014 FINDINGS: Brain: Chronic appearing left occipital lobe infarct. No hemorrhage. No significant white matter disease. Ventricles: Unremarkable. No ventriculomegaly. Bones/joints: Unremarkable. No acute fracture. Soft tissues: Unremarkable. Sinuses: Unremarkable as visualized. No acute sinusitis. Mastoid air cells: Unremarkable as visualized. No mastoid effusion. IMPRESSION: No acute findings in the head/brain. Chronic left occipital lobe and Communications: Call Doctor Stroke Electronically signed by: Donato Ravi MD 03/04/25 22:32 PM
[2025-03-04 22:40] LABS: INR 1.0 (0.9-1.1); Partial Thromboplastin Time 26 Seconds (21-31); Prothrombin Time 10.4 Seconds (9.0-12.0)
--- NOTE | 2025-03-04 23:00 | CT Scan Report ---
Exam(s): CTA CHEST IV Amt: 120 ml [id number] EXAM: CT Angiography Chest With Intravenous Contrast CLINICAL HISTORY: Reason for exam: PE. TECHNIQUE: Axial computed tomographic angiography images of the chest with intravenous contrast. CTDI is 36.31 mGy and DLP is 1824.73 mGy-cm. Automated exposure control was utilized for the study. A dose lowering technique was utilized adhering to the principles of ALARA. MIP reconstructed images were created and reviewed. COMPARISON: No relevant prior studies available. FINDINGS: Pulmonary arteries: Unremarkable. No pulmonary embolism. Aorta: No acute findings. No thoracic aortic aneurysm. Lungs: Unremarkable. No mass. No consolidation. Pleural space: Unremarkable. No significant effusion. No pneumothorax. Heart: Unremarkable. No cardiomegaly. No significant pericardial effusion. No evidence of RV dysfunction. Bones/joints: No acute fracture. No dislocation. Soft tissues: Unremarkable. Lymph nodes: Unremarkable. No enlarged lymph nodes. IMPRESSION: Normal chest CTA. No pulmonary embolism. Electronically signed by: Donato Ravi MD 03/04/25 22:58 PM
[2025-03-04] MEDS: ACETAMINOPHEN 1,000 MG/100 ML VIAL IV STA (23:02)
[2025-03-04] MEDS: ACETAMINOPHEN 1000 MG/100 ML IV IV ONE (23:02)
[2025-03-04] MEDS: ONDANSETRON INJ 2 MG/ML 2 ML VIAL IV STA ×2 (23:04→23:37)
[2025-03-04] MEDS: TENECTEPLASE 20 MG in SYRINGE 0 ML IV STA (23:13)
[2025-03-04] MEDS: MoRPHine SULFATE 4 MG/ML 1 ML CARP\\VIAL IV STA (23:33)
[2025-03-04] MEDS: SODIUM CHLORIDE 0.9% 500 ML IV ONE (23:34)
[2025-03-04] MEDS: PROMETHAZINE 25 MG/51 ML BAG IV STA (23:58)
--- NOTE | 2025-03-05 00:05 | XRay Report ---
Exam(s): XR CXR 1 VIEW EXAM: XR Chest, 1 View CLINICAL HISTORY: Reason for exam: neuro deficit, acute stroke suspected. TECHNIQUE: Frontal view of the chest. COMPARISON: No relevant prior studies available. FINDINGS: Lungs: Unremarkable. No consolidation. Pleural space: Unremarkable. No pneumothorax. Heart: Unremarkable. No cardiomegaly. Mediastinum: Unremarkable. Normal mediastinal contour. Bones/joints: Unremarkable. No acute fracture. IMPRESSION: Normal chest x-ray. Electronically signed by: Donato Ravi MD 03/05/25 00:04 AM
[2025-03-05] MEDS: MoRPHine SULFATE 4 MG/ML 1 ML CARP\\VIAL IV STA ×2 (00:24→02:27)
--- NOTE | 2025-03-05 01:57 | Critical Care Consultation ---
Date of Consultation March 05, 2025 Assessment & Plan (1) Stroke-like symptoms: (2) Hypertension: (3) Hyperlipidemia: (4) Current smoker: (5) Chronic pain: Plan Reason Critically Ill: Patient presents with stroke like symptoms - acute on chronic residual deficits. Symptoms reported to start at 1999, imaging performed without acute changes or bleed, deemed thrombolytic candidate by [facility] [place]estroke [place]. TNK administered at 2313. To the ICU for continued neurological examinations and hemodynamic monitoring. 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, chronic pain, neuropathy of lower extre mities CAM ICU: NEGATIVE - Patient presents with acute on chronic stroke like symptoms involving vision, right arm, right leg weakness/numbness, dysarthria - TNK administration at 2313 - NIHSS 4-5 - difficult examination given the residual chronic deficits from prior Left occipital CVA - MRI of brain when able - NO noted ICAD or Carotid disease on CTAs- has been maintained on ASA/Bril inta previous- hold for 24 hours post TNK administration - following MRI results- defer to neurology for adjustment of her DAP - Smoking cessation is paramount - Allow permissive HTN - Lipid panel pending - on pravastatin 10mg adjust as warranted - HGB A1c in am- report hedy recently added- defer to hospitalist - Labetalol and/or Hydralazine for SBP > 180/105 - ECHO in am - CT non contrast head for any changes - Chronic pain- will hold her Tizanidine at this time as this may have deleterious hemodynamic effects and hold further sedating medications to not cloud neurological exam. - Tylenol for pain - Can continue her oxycodone if still taking to prevent withdraw - Continue lyrica Cardiac - No acute needs, Hx: HTN, HLD - As above - Allow for permissive HTN - Hold ASA and Brilinta 24 hours post TNK Respiratory - No acute needs, Hx: Current everyday smoker, asthma/copd - smoking cessation as above - CHRISTAL inhaler if needed GI - No acute needs RENAL/LYTES - No acute needs - no acute needs ENDO - DMII - ICU hyperglycemic protocol HEME - no acute needs, HX: Luekemia/CML - records not available for review, will defer to hospitalist service for further management or need - Transfuse for acute blood loss, HGB <8.0, or symptomatic ID - No cocnern at this time for infectious etiology- however urine is pending LINES/IV ACCESS - PIV Continue use of these lines DVT PROPHYLAXIS - SCDS- chemoprophylaxis contraindicated 24 hour post thrombolytics DISPO: ICU 24 hour post TNK administration I have personally spent 40 minutes of critical care time in the direct management of this patient. This is a life/limb threatening event. This includes time spent evaluating patient, direct bedside care, chart review, placing orders, interpretation of diagnostic studies, discussion with consultants, patient, and family members, as well as other required patient management activities. This time is exclusive of all separately billable procedures, and teaching time and separate from and in addition to any other critical care service time. Thank you for allowing us to participate in the care of this patient. Please refer to my attending physician's documentation for any further recommendations. Supervising Physician Co-Signing Physician Notes Patient seen and examined. EMR reviewed. Discussed with critical care AMELIA and with bedside ICU nurse as well as on multidisciplinary rounds. No signs of bleeding. NIH score remains stable at 2 which appears to be her chronic baseline. Advanced neuro axial imaging pending. Blood pressure is adequate. Continue to monitor in the ICU 24 hours post TNK administration per protocol for signs or symptoms of bleeding. Neurology consultation pending. Echo pending. Await formal read on MRI. The patient could likely transfer out of the ICU once her 24-hour imaging is completed. History of Present Illness Reason for Consultation: stroke like symptoms s/p thrombolytic administration Requesting Physician: Eugene Zhang MD Attending Physician: Eugene Zhang MD History of Present Illness 69 YOF with past medical history of: CVA (ischemic occipital 2023), neuropathy, chronic pain, migraines, Leukemia, HTN, HLD, arthritis, current smoker. Patient is accompanied by her daughter, who assists in the medical history, as patient has residual facial droop, vision problems, and slow speech from previous CVA. They report that around 1999 this evening the patient got up to walk and noted that her right leg, felt more numb than normal and some weakness associated with it. She sat and kept hitting her leg to get it to try and "wake up" but symptoms then progressed to right arm numbness, and possibly some visual changes that acutely worsened from her baseline homonymous hemianopsia. She arrived to the ER as a stroke alert. She was hypertensive to the 160-180s on arrival. She underwent CT head without contrast and CT head and neck with contrast. There was no acute LVO, hemorrhage, aneurysm, or stenosis interpreted on imaging. Remains with chronic left occipital infarct. NIHSS was initially scored 4 and she was deemed a thrombolytic candidate. She received TNK at 2313. Patient was seen in the ER in B1 while awaiting admission orders. She reports that she feels better than on admission and on exam with her daughter present, it appears as she is having less right sided weakness and less ataxia with the right arm and leg. Patient currently with NIHSS- of 5, however she is with residual facial droop from previous surgery, residual dysarthria, residual chronic numbness/neuropathy of right arm and leg, and residual right sided weakness. At best, her score has not acutely worsened. Patient will be brought to the ICU for continued neurological examinations as well as hemodynamic monitoring. CODE: FULL Daughter reports having medical POA and will bring paperwork to hospital in AM to assist with continuity. Allergies Allergy/AdvReac Type Severity Reaction Status Date / Time bacitracin Allergy Severe blisters Verified 02/06/25 15:05 Cephalosporins Allergy Severe DYSPNEA Verified 02/06/25 15:05 hydromorphone Allergy Severe DYSPNEA Verified 02/06/25 15:05 Penicillins Allergy Severe HIVES;DYSPN Verified 02/06/25 15:05 EA Sulfa (Sulfonamide Allergy Severe HIVES;DYSPNEA Verified 02/06/25 15:05 Antibiotics) (PT STATES SHE HAS TAKEN CELEBREX W/O RXN) chlorpheniramine Allergy Unknown UNABLE TO Verified 02/06/25 15:05 URINATE nickel Allergy Unknown RASH Verified 02/06/25 15:05 phenylephrine Allergy Unknown UNABLE TO Verified 02/06/25 15:05 URINATE phenylpropanolamine Allergy Unknown UNABLE TO Verified 02/06/25 15:05 URINATE phenyltoloxamine Allergy Unknown UNABLE TO Verified 02/06/25 15:05 URINATE adhesive AdvReac Intermediate RASH;ITCHIN Verified 02/06/25 15:05 G aspirin AdvReac Mild STOMACH Verified 02/06/25 15:05 BURNING nilotinib [From Tasigna] AdvReac constipatio Verified 02/06/25 15:05 n Home Medications Medication Instructions Recorded Confirmed Type cetirizine 10 mg capsule (Zyrtec) 10 mg PO DAILY 04/06/18 03/04/25 History pregabalin 150 mg capsule (Lyrica) 150 mg PO BID 04/06/18 03/04/25 History oxycodone 10 mg tablet 10 mg PO Q8 PRN Pain 04/10/18 03/04/25 History potassium chloride 10 mEq 10 meq PO DAILY 04/10/18 03/04/25 History tablet,extended release(part/cryst) (Klor-Con M) albuterol sulfate 90 mcg/actuation 2 puffs inhalation Q6H PRN trouble 05/30/18 03/04/25 History breath activated powder inhaler breathing diphenhydramine HCl 25 mg capsule 25 mg PO Q4H PRN itchiness 05/30/18 03/04/25 History (Benadryl) lactobacillus combination no.8 3 3,000 mmu cells PO DAILY 05/30/18 03/04/25 History billion cell capsule (Adult Probiotic) loperamide 2 mg capsule (Imodium 2 mg PO Q4H PRN loose stool 05/30/18 03/04/25 History A-D) cholecalciferol (vitamin D3) 50 4,000 units PO DAILY 05/24/19 03/04/25 History mcg (2,000 unit) capsule promethazine 25 mg tablet 25 mg PO Q6H PRN Nausea And 05/24/19 03/04/25 History Vomiting magnesium hydroxide 400 mg/5 mL 5 ml PO DAILY PRN Constipation 05/06/21 03/04/25 History oral suspension (Milk of Magnesia) sumatriptan succinate 6 mg/0.5 mL 6 mg (0.5 mL) subcut ONCE PRN 10/01/21 03/04/25 Rx subcutaneous pen injector migraine headache #1 mL hydrochlorothiazide 12.5 mg capsule 12.5 mg PO DAILY 11/02/21 03/04/25 History propranolol 120 mg capsule,24 240 mg (2 x 120 mg) PO HS #60 caps 12/13/21 03/04/25 Rx hr,extended release asciminib 20 mg tablet (Scemblix) 20 mg PO BID 11/22/22 03/04/25 History tizanidine 4 mg capsule 4 mg PO BID PRN spasms 12/19/23 03/04/25 History ticagrelor 90 mg tablet (Brilinta) 90 mg PO BID 06/13/24 03/04/25 History pravastatin 10 mg tablet 10 mg PO DAILY 02/06/25 03/04/25 History tirzepatide 2.5 mg/0.5 mL 7.5 mg subcut .Weekly 02/06/25 03/04/25 History subcutaneous pen injector (Mounjaro) fremanezumab-vfrm 225 mg/1.5 mL 225 mg subcut MONTHLY 03/04/25 03/04/25 History subcutaneous auto-injector (Ajovy) lorazepam 1 mg tablet (Ativan) 1 mg PO TID PRN Anxiety 03/04/25 03/04/25 History rabeprazole 20 mg PO BID 03/04/25 03/04/25 History Patient History Medical History (Updated 03/05/25 @ 02:20 by LUISA Aquino) Sepsis Intra-abdominal abscess Intra-abdominal abscess Hypokalemia Headache Headache Arthritis Stomach problems Pneumonia Bronchitis Asthma Intractable migraine with aura without status migrainosus Leukemia Opioid dependence Lumbar facet joint syndrome Postlaminectomy syndrome of lumbosacral region On home oxygen therapy Herpes zoster involving cervical dermatome Migraine Chronic myeloid leukemia Cervicalgia Chronic migraine Surgical History (Updated 03/05/25 @ 02:12 by LUISA Aquino) History of cholecystectomy History of lumbar laminectomy S/P ovarian cystectomy S/P tonsillectomy Family History Father Brain tumor Aunt Breast cancer Social History Smoking Status: Current every day smoker Tobacco Type: Cigarettes Cigarettes Per Day: 0.5 pk/day; Hx Alcohol Use: Yes Hx Substance Use: No Preferred Language: Kazakh Communication Ability: Effective Visual Impairment: No Limitations Hearing Ability: Normal Finishing Trimmer Required: No Beliefs That Will Affect Care: None marital status: Legally Current Living Situation: Family Current Living Situation Comment: Jyoti- daughter current occupational status: disabled Feels Safe at Home: Yes Safety Concerns: Feels Safe At This Time Assistive Devices: Denture - Upper, Denture - Lower, Oxygen - at Night and Walker Review of Systems Review of Systems: REVIEW OF SYSTEMS: Constitutional: No fever, sweats or chills Eyes: (+) chronic homonymous hemianopsia, no worsening or blurred vision ENT: normal hearing, no trouble swallowing Respiratory: (+) current smoker, No cough, sputum, dyspnea at rest or on exertion Cardiovascular: No chest pain, tightness or palpitations Abdomen: No pain, nausea, vomiting, diarrhea or constipation Musculoskeletal: (+) chronic back pain, Neurologic: (+) weakness, numbness/tingling, or balance problems Psychiatric: (+) anxiety Physical Exam Physical Exam: PHYSICAL EXAM: General: awake, alert, Head: Normocephalic, atraumatic Neuro: AAO x 3, speech appears more at baeseline per daughter, remains with dysarthria, right facial droop, decreased sensation on right upper and right lower extremity- but able to feel slightly less on right than left, strength intact bilaterally 5/5, homonymous hemianopsia left medial and right lateral visual pizano- which is chornic, ataxia to right upper arm Chest: equal rise and fall of the chest, no accessory muscle use, wheeze on exhalation, on room air, Cardiac: Regular rate and rhythm, telemetry reviewed- NSR, skin warm dry, cap refill <3 seconds, peripheral pulses +2 no JVD, no murmur, no edema GI: NABS x 4 quadrants, soft, nontender to palpation, no rebound, guarding or tenderness : Spontaneously voiding, no pain, no CVA tenderness, Skin: no rash or erythema Results & Data Results & Data Vital Signs (Past 12 Hours) Vital Signs Temp Pulse Pulse Resp BP BP Pulse Ox 03/05/25 01:43 36.7 C 81 17 132/93 98 03/05/25 01:13 36.7 C 83 17 141/83 H 98 03/05/25 00:58 36.7 C 82 17 149/93 H 97 03/05/25 00:43 36.7 C 81 17 154/94 H 97 03/05/25 00:28 36.7 C 83 17 134/85 97 03/05/25 00:13 36.7 C 79 16 154/95 H 92 03/04/25 23:58 36.8 C 81 16 131/92 95 03/04/25 23:43 36.8 C 83 17 148/87 H 95 03/04/25 23:43 36.8 C 83 17 160/90 H 95 03/04/25 23:28 36.8 C 88 17 186/82 H 95 03/04/25 23:13 36.8 C 77 16 174/100 H 95 03/04/25 23:13 36.8 C 79 16 142/104 H 95 03/04/25 23:01 79 20 174/100 H 94 03/04/25 22:55 76 14 176/122 H 95 03/04/25 22:48 78 15 176/122 H 100 03/04/25 22:40 77 20 168/103 H 100 03/04/25 22:25 79 13 169/93 H 96 03/04/25 22:15 90 20 93 03/04/25 22:12 81 22 93 03/04/25 22:10 173/95 H 03/04/25 22:10 173/95 H 03/04/25 22:09 36.8 C 80 20 173/95 H 91 03/04/25 22:08 81 03/04/25 21:54 80 22 03/04/25 21:44 37 C 85 175/108 H 95 O2 Del Method O2 Flow Rate 03/05/25 01:43 Nasal Cannula 2 03/05/25 01:13 Nasal Cannula 2 03/05/25 00:58 Nasal Cannula 2 03/05/25 00:43 Nasal Cannula 2 03/05/25 00:28 Nasal Cannula 2 03/05/25 00:13 Room Air 03/04/25 23:58 Room Air 03/04/25 23:43 Room Air 03/04/25 23:43 Room Air 03/04/25 23:28 Room Air 03/04/25 23:13 Room Air 03/04/25 23:13 Room Air 03/04/25 23:01 Room Air 03/04/25 22:55 Room Air 03/04/25 22:48 Room Air 03/04/25 22:40 Room Air 03/04/25 22:25 Room Air 03/04/25 22:15 03/04/25 22:12 03/04/25 22:10 03/04/25 22:10 03/04/25 22:09 Room Air 03/04/25 22:08 03/04/25 21:54 03/04/25 21:44 Room Air Laboratory Results Abnormal lab results 03/04/25 03/04/25 Range/Units 21:52 21:54 WBC 11.98 H (4.8-10.8) K/ul Neut # (Auto) 8.10 H (1.40-6.50) K/uL Gladwin # (Auto) 1.17 H (0.11-0.59) K/uL Chloride 97 L (98-107) mmol/L Carbon Dioxide 33 H (21-32) mmol/L Glucose 133 H (70-99(Fasting)) mg/dl POC Glucose 121 H (70-99) mg/dl Diagnostic Findings Chest CTA 03/04/25 21:55 Exam(s): CTA CHEST IV Amt: 120 ml [id number] EXAM: CT Angiography Chest With Intravenous Contrast CLINICAL HISTORY: Reason for exam: PE. TECHNIQUE: Axial computed tomographic angiography images of the chest with intravenous contrast. CTDI is 36.31 mGy and DLP is 1824.73 mGy-cm. Automated exposure control was utilized for the study. A dose lowering technique was utilized adhering to the principles of ALARA. MIP reconstructed images were created and reviewed. COMPARISON: No relevant prior studies available. FINDINGS: Pulmonary arteries: Unremarkable. No pulmonary embolism. Aorta: No acute findings. No thoracic aortic aneurysm. Lungs: Unremarkable. No mass. No consolidation. Pleural space: Unremarkable. No significant effusion. No pneumothorax. Heart: Unremarkable. No cardiomegaly. No significant pericardial effusion. No evidence of RV dysfunction. Bones/joints: No acute fracture. No dislocation. Soft tissues: Unremarkable. Lymph nodes: Unremarkable. No enlarged lymph nodes. IMPRESSION: Normal chest CTA. No pulmonary embolism. Electronically signed by: Donato Ravi MD 03/04/25 22:58 PM Chest X-Ray 03/04/25 21:55 Exam(s): XR CXR 1 VIEW EXAM: XR Chest, 1 View CLINICAL HISTORY: Reason for exam: neuro deficit, acute stroke suspected. TECHNIQUE: Frontal view of the chest. COMPARISON: No relevant prior studies available. FINDINGS: Lungs: Unremarkable. No consolidation. Pleural space: Unremarkable. No pneumothorax. Heart: Unremarkable. No cardiomegaly. Mediastinum: Unremarkable. Normal mediastinal contour. Bones/joints: Unremarkable. No acute fracture. IMPRESSION: Normal chest x-ray. Electronically signed by: Donato Ravi MD 03/05/25 00:[address] 03/04/25 21:55 CR Exam(s): CT HEAD Without Contrast EXAM: CT Head Without Intravenous Contrast CLINICAL HISTORY: Reason for exam: neuro deficit, acute stroke suspected. TECHNIQUE: Axial computed tomography images of the head/brain without intravenous contrast. CTDI is 36.31 mGy and DLP is 1824.73 mGy-cm. Automated exposure control was utilized for the study. A dose lowering technique was utilized adhering to the principles of ALARA. COMPARISON: 03/01/2014 FINDINGS: Brain: Chronic appearing left occipital lobe infarct. No hemorrhage. No significant white matter disease. Ventricles: Unremarkable. No ventriculomegaly. Bones/joints: Unremarkable. No acute fracture. Soft tissues: Unremarkable. Sinuses: Unremarkable as visualized. No acute sinusitis. Mastoid air cells: Unremarkable as visualized. No mastoid effusion. IMPRESSION: No acute findings in the head/brain. Chronic left occipital lobe and Communications: Call Doctor Stroke Electronically signed by: Donato Ravi MD 03/04/25 22:32 PM Head CTA 03/04/25 21:55 CR Exam(s): CTA HEAD With Contrast IV Amt: 120 ml [id number] EXAM: CT Angiography Head With Intravenous Contrast CLINICAL HISTORY: Reason for exam: neuro deficit, acute stroke suspected. TECHNIQUE: Axial computed tomographic angiography images of the head with intravenous contrast. CTDI is 36.31 mGy and DLP is 1824.73 mGy-cm. Automated exposure control was utilized for the study. A dose lowering technique was utilized adhering to the principles of ALARA. MIP reconstructed images were created and reviewed. CONTRAST: Patient received 120 ml [id number] of IV contrast COMPARISON: No relevant prior studies available. FINDINGS: Right internal carotid artery: No acute findings. Intracranial segment is patent with no significant stenosis. No aneurysm. Right anterior cerebral artery: Unremarkable. No occlusion or significant stenosis. No aneurysm. Right middle cerebral artery: Unremarkable. No occlusion or significant stenosis. No aneurysm. Right posterior cerebral artery: Unremarkable. No occlusion or significant stenosis. No aneurysm. Right vertebral artery: Unremarkable as visualized. Left internal carotid artery: No acute findings. Intracranial segment is patent with no significant stenosis. No aneurysm. Left anterior cerebral artery: Unremarkable. No occlusion or significant stenosis. No aneurysm. Left middle cerebral artery: Unremarkable. No occlusion or significant stenosis. No aneurysm. Left posterior cerebral artery: Unremarkable. No occlusion or significant stenosis. No aneurysm. Left vertebral artery: Unremarkable as visualized. Basilar artery: Unremarkable. No occlusion or significant stenosis. No aneurysm. IMPRESSION: Normal head CTA. Communications: Call Doctor Stroke Electronically signed by: Donato Ravi MD 03/04/25 22:27 PM Neck CTA 03/04/25 21:55 CR Exam(s): CTA NECK With Contrast IV Amt: 120 ml [id number] EXAM: CT Angiography Neck With Intravenous Contrast CLINICAL HISTORY: Reason for exam: neuro deficit, acute stroke suspected. TECHNIQUE: Routine carotid CT angiography protocol was performed with intravenous contrast. NASCET criteria using the distal ICAs for comparison were used for evaluation of stenoses. CTDI is 36.31 mGy and DLP is 1824.73 mGy-cm. Automated exposure control was utilized for the study. A dose lowering technique was utilized adhering to the principles of ALARA. MIP reconstructed images were created and reviewed. CONTRAST: Patient received 120 ml [id number] of IV contrast COMPARISON: None. FINDINGS: VASCULATURE: Right common carotid artery: Unremarkable. No occlusion or significant stenosis. No dissection. Right internal carotid artery: Unremarkable. Extracranial segment is patent with no occlusion or significant stenosis. No dissection. Right external carotid artery: Unremarkable. No occlusion. Right vertebral artery: Unremarkable. No occlusion or significant stenosis. No dissection. Left common carotid artery: Unremarkable. No occlusion or significant stenosis. No dissection. Left internal carotid artery: Unremarkable. Extracranial segment is patent with no occlusion or significant stenosis. No dissection. Left external carotid artery: Unremarkable. No occlusion. Left vertebral artery: Unremarkable. No occlusion or significant stenosis. No dissection. NECK: Bones/joints: Unremarkable. No acute fracture. Soft tissues: Unremarkable. Lung apices: Clear. CAROTID STENOSIS REFERENCE USING NASCET CRITERIA: % ICA stenosis = (1 - narrowest ICA diameter/diameter of distal cervical ICA) x 100. Mild - <50% stenosis. Moderate - 50-69% stenosis. Severe - 70-94% stenosis. Near occlusion - 95-99% stenosis. Occluded - 100% stenosis. IMPRESSION: Negative CTA neck. Communications: Call Doctor Stroke Electronically signed by: Donato Ravi MD 03/04/25 22:28 PM Medications Administered Discontinued Medications Acetaminophen (Acetaminophen 1000 Mg/100 Ml Iv) Confirm Administered Dose 1,000 mg IV .STK-MED ONE Stop: 03/04/25 23:00 Last Admin: 03/04/25 23:02 Dose: Not Given Documented By: SHIVAM Tenecteplase 20 mg/ Syringe 4 mls @ 0 mls/min IV NOW STA Stop: 03/04/25 22:55 Last Admin: 03/04/25 23:13 Dose: 60 mls/min Documented By: PAM Co-signed By: BRADLEY [facility] 1,000 mg in 100 mls @ 400 mls/hr IV NOW STA Stop: 03/04/25 23:14 Last Infusion: 03/04/25 23:24 Dose: Infused Documented By: Admin: 03/04/25 23:02 Dose: 400 mls/hr Documented By: SHIVAM Sodium Chloride (Nss) 500 mls @ 999 mls/hr IV .Q31M ONE Stop: 03/04/25 23:43 Last Infusion: 03/04/25 23:58 Dose: Infused Documented By: Admin: 03/04/25 23:34 Dose: 999 mls/hr Documented By: PAM Promethazine HCl (Phenergan) 25 mg in 51 mls @ 204 mls/hr IV NOW STA Stop: 03/04/25 23:52 Last Infusion: 03/05/25 00:13 Dose: Infused Documented By: Admin: 03/04/25 23:58 Dose: 204 mls/hr Documented By: PAM Ioversol (Optiray 320 125ml) 120 ml IV ONCE ONE Stop: 03/04/25 22:16 Last Admin: 03/04/25 22:15 Dose: 120 ml Documented By: MCKAYLA Morphine Sulfate (Morphine Sulfate 4 Mg/Ml 1 Ml Carp\\Vial) 4 mg IV NOW STA Stop: 03/04/25 23:29 Last Admin: 03/04/25 23:33 Dose: 4 mg Documented By: PAM Morphine Sulfate (Morphine Sulfate 4 Mg/Ml 1 Ml Carp\\Vial) 4 mg IV NOW STA Stop: 03/05/25 00:18 Last Admin: 03/05/25 00:24 Dose: 4 mg Documented By: PAM Ondansetron HCl (Ondansetron Inj 2 Mg/Ml 2 Ml Vial) 4 mg IV NOW STA Stop: 03/04/25 23:01 Last Admin: 03/04/25 23:04 Dose: 4 mg Documented By: SHIVAM Ondansetron HCl (Ondansetron Inj 2 Mg/Ml 2 Ml Vial) 4 mg IV NOW STA Stop: 03/04/25 23:29 Last Admin: 03/04/25 23:37 Dose: Not Given Documented By: PAM ECG Additional Comments: Sinus rhythmwith 1st degree A-V blockwithPremature atrial complexes Otherwise normal ECG When compared with ECG [id number] 14:37, Premature atrial complexesare nowPresent Coding Level of Care Code 19331 CRITICAL CARE 1ST 30-74M Diagnoses Stroke-like symptoms R29.90 Hypertension I10 Hyperlipidemia E78.5 Current smoker F17.200 Chronic pain G89.29
--- NOTE | 2025-03-05 02:32 | History & Physical Report ---
Date of Service March 05, 2025 Assessment & Plan (1) Stroke-like symptoms: Plan: 69-year-old female with past medical history significant for CVA, diabetes, migraines, hypertension, anxiety, hyperlipidemia, chronic back pain GERD, CML was brought in by daughter because of strokelike symptoms. Around 8 PM patient noticed numbness initially in the right leg and then spread to the right upper extremity and right face which prompted the daughter to bring the patient to the hospital. Patient was stroke alert. Last year patient had a headache and went to [facility] and found to have stroke.. At that time she had right-sided weakness and also bilateral peripheral vision loss. She was placed on Brilinta. She is ambulating with a rollator walker at home. But her right sided weakness much improved from previous stroke as per daughter. But today her right side was very numb. Currently patient is alert and awake. When she came in she has headache that got resolved. No runny nose or sore throat. No fevers. Complains of some chest pain . No shortness of breath. No nausea. No abdominal pain. Normal bowel and bladder movements. Daughter states after last stroke the blood pressures are mostly on the softer side. And today blood p ressure is somewhat elevated.Her vision is poor from previous last year stroke. Strokelike symptoms Patient has history of CVA last year with the right-sided weakness there is much improved and ambulates with walker. She had worsening numbness in the right side today and patient was stroke alert. CT head unremarkable. CTA head and neck unremarkable Patient is status post TNK. No anticoagulation for 24 hours. Close monitoring in ICU. Repeat CT head 24 hours post TNK iv labetalol prn for sbp > 180 or dbp > 105 Will follow MRI scan N.p.o. for now Speech consult PT OT when stable Neuroconsult in a.m. for further recommendations History of CVA last year On Brilinta which will be held as patient received tnk. On pravastatin History of migraines On propranolol On Ajovy monthly which will be held Hypertension Holding hydrochlorothiazide Continue propranolol with holding parameters Chronic back pain Holding oxycodone for now Holding pregabalin for now Patient gets restless legs while sleeping hold tizanidine for now Diabetes Hold Mounjaro Sliding scale Monitor History of CML In remission as per daughter We will hold asciminib for now DVT prophylaxis SCDs Disposition ICU Full code History of Present Illness Chief Complaint: Strokelike symptoms Primary Care Provider: Eugenia Molina 69-year-old female unassigned patient with past medical history significant for CVA, diabetes, migraines, hypertension, anxiety, hyperlipidemia, chronic back pain GERD, CML was brought in by daughter because of strokelike symptoms. Around 8 PM patient noticed numbness initially in the right leg and then spread to the right upper extremity and right face which prompted the daughter to bring the patient to the hospital. Patient was stroke alert. Last year patient had a headache and went to [facility] and found to have stroke.. At that time she had right-sided weakness and also bilateral peripheral vision loss. She was placed on Brilinta. She is ambulating with a rollator walker at home. But her right sided weakness much improved from previous stroke as per daughter. But today her right side was very numb. Currently patient is alert and awake. When she came in she has headache that got resolved. No runny nose or sore throat. No fevers. Denies any chest pain or shortness of breath. No nausea. No abdominal pain. Normal bowel and bladder movements. Daughter states after last stroke the blood pressures are mostly on the softer side. And today blood pressure is somewhat elevated. Her vision is poor from previous last year stroke. Past medical history. As mentioned above. Past surgical history. Back surgeries. Right knee surgery. Tubal ligations. Ovarian cystectomy. Cholecystectomy. Social history. Currently smoking half pack a day before used to smoke more than 1 pack per smoking's for last 50 years. Alcohol rarely. No drug use. Family history. Father had a brain tumor. Aunt had breast cancer. Mother had dementia. Allergies Allergy/AdvReac Type Severity Reaction Status Date / Time bacitracin Allergy Severe blisters Verified 02/06/25 15:05 Cephalosporins Allergy Severe DYSPNEA Verified 02/06/25 15:05 hydromorphone Allergy Severe DYSPNEA Verified 02/06/25 15:05 Penicillins Allergy Severe HIVES;DYSPN Verified 02/06/25 15:05 EA Sulfa (Sulfonamide Allergy Severe HIVES;DYSPNEA Verified 02/06/25 15:05 Antibiotics) (PT STATES SHE HAS TAKEN CELEBREX W/O RXN) chlorpheniramine Allergy Unknown UNABLE TO Verified 02/06/25 15:05 URINATE nickel Allergy Unknown RASH Verified 02/06/25 15:05 phenylephrine Allergy Unknown UNABLE TO Verified 02/06/25 15:05 URINATE phenylpropanolamine Allergy Unknown UNABLE TO Verified 02/06/25 15:05 URINATE phenyltoloxamine Allergy Unknown UNABLE TO Verified 02/06/25 15:05 URINATE adhesive AdvReac Intermediate RASH;ITCHIN Verified 02/06/25 15:05 G aspirin AdvReac Mild STOMACH Verified 02/06/25 15:05 BURNING nilotinib [From Tasigna] AdvReac constipatio Verified 02/06/25 15:05 n Home Medications Medication Instructions Recorded Confirmed Type cetirizine 10 mg capsule (Zyrtec) 10 mg PO DAILY 04/06/18 03/04/25 History pregabalin 150 mg capsule (Lyrica) 150 mg PO BID 04/06/18 03/04/25 History oxycodone 10 mg tablet 10 mg PO Q8 PRN Pain 04/10/18 03/04/25 History potassium chloride 10 mEq 10 meq PO DAILY 04/10/18 03/04/25 History tablet,extended release(part/cryst) (Klor-Con M) albuterol sulfate 90 mcg/actuation 2 puffs inhalation Q6H PRN trouble 05/30/18 03/04/25 History breath activated powder inhaler breathing diphenhydramine HCl 25 mg capsule 25 mg PO Q4H PRN itchiness 05/30/18 03/04/25 History (Benadryl) lactobacillus combination no.8 3 3,000 mmu cells PO DAILY 05/30/18 03/04/25 History billion cell capsule (Adult Probiotic) loperamide 2 mg capsule (Imodium 2 mg PO Q4H PRN loose stool 05/30/18 03/04/25 History A-D) cholecalciferol (vitamin D3) 50 4,000 units PO DAILY 05/24/19 03/04/25 History mcg (2,000 unit) capsule promethazine 25 mg tablet 25 mg PO Q6H PRN Nausea And 05/24/19 03/04/25 History Vomiting magnesium hydroxide 400 mg/5 mL 5 ml PO DAILY PRN Constipation 05/06/21 03/04/25 History oral suspension (Milk of Magnesia) sumatriptan succinate 6 mg/0.5 mL 6 mg (0.5 mL) subcut ONCE PRN 10/01/21 03/04/25 Rx subcutaneous pen injector migraine headache #1 mL hydrochlorothiazide 12.5 mg capsule 12.5 mg PO DAILY 11/02/21 03/04/25 History propranolol 120 mg capsule,24 240 mg (2 x 120 mg) PO HS #60 caps 12/13/21 03/04/25 Rx hr,extended release asciminib 20 mg tablet (Scemblix) 20 mg PO BID 11/22/22 03/04/25 History tizanidine 4 mg capsule 4 mg PO BID PRN spasms 12/19/23 03/04/25 History ticagrelor 90 mg tablet (Brilinta) 90 mg PO BID 06/13/24 03/04/25 History pravastatin 10 mg tablet 10 mg PO DAILY 02/06/25 03/04/25 History tirzepatide 2.5 mg/0.5 mL 7.5 mg subcut .Weekly 02/06/25 03/04/25 History subcutaneous pen injector (Mounjaro) fremanezumab-vfrm 225 mg/1.5 mL 225 mg subcut MONTHLY 03/04/25 03/04/25 History subcutaneous auto-injector (Ajovy) lorazepam 1 mg tablet (Ativan) 1 mg PO TID PRN Anxiety 03/04/25 03/04/25 History rabeprazole 20 mg PO BID 03/04/25 03/04/25 History Past Med/Surg History Problem List (Updated 03/05/25 @ 02:20 by LUISA Aquino) Chronic pain Current smoker Stroke-like symptoms Acute CVA (cerebrovascular accident) (Acute) History of bilateral total hip arthroplasty (Chronic) Hx of total knee arthroplasty (Chronic) History of chemotherapy (Chronic) Diastolic dysfunction (Chronic) Hyperlipidemia (Chronic) Hypertension (Chronic) Medical History (Updated 03/05/25 @ 02:20 by LUISA Aquino) Sepsis Intra-abdominal abscess Intra-abdominal abscess Hypokalemia Headache Headache Arthritis Stomach problems Pneumonia Bronchitis Asthma Intractable migraine with aura without status migrainosus Leukemia Opioid dependence Lumbar facet joint syndrome Postlaminectomy syndrome of lumbosacral region On home oxygen therapy Herpes zoster involving cervical dermatome Migraine Chronic myeloid leukemia Cervicalgia Chronic migraine Surgical History (Updated 03/05/25 @ 02:12 by LUISA Aquino) History of cholecystectomy History of lumbar laminectomy S/P ovarian cystectomy S/P tonsillectomy Family History Father Brain tumor Aunt Breast cancer Social History Smoking Status: Current every day smoker Tobacco Type: Cigarettes Cigarettes Per Day: 0.5 pk/day; Hx Alcohol Use: Yes Hx Substance Use: No Preferred Language: Estonian Communication Ability: Effective Visual Impairment: No Limitations Hearing Ability: Normal Branch Associate Teller Required: No Beliefs That Will Affect Care: None marital status: Legally Current Living Situation: Family Current Living Situation Comment: Jyoti- daughter current occupational status: disabled Feels Safe at Home: Yes Safety Concerns: Feels Safe At This Time Assistive Devices: Denture - Upper, Denture - Lower, Oxygen - at Night and Walker Review of Systems Review of Systems: All systems reviewed & are unremarkable except as noted in HPI & below Physical Exam Physical Exam: General- Not in acute distress Head- atraumatic. Mild right facial droop Eyes- PERRL. ENT- oropharynx clear Neck- supple, no JVD. Lungs- clear to auscultation no wheezing or crackles Heart- regular rhythm; no murmur, no gallop. Abdomen- normal bowel sounds, soft, nontender, no distension Extremities- no pretibial edema, no erythema seen. Neuro- alert, oriented PERRL, Mild right facial droop; no dysarthria; power 3/5 right lower extremity 4/5 right upper extremity, 5/5 left extremities, no pronator drift, coordination of movements ok. decreased sensation on right side. Results & Data Results & Data Vital Signs (Past 12 Hours) Vital Signs Temp Pulse Pulse Resp BP BP Pulse Ox 03/05/25 02:06 78 03/05/25 01:43 36.7 C 81 17 132/93 98 03/05/25 01:13 36.7 C 83 17 141/83 H 98 03/05/25 00:58 36.7 C 82 17 149/93 H 97 03/05/25 00:43 36.7 C 81 17 154/94 H 97 03/05/25 00:28 36.7 C 83 17 134/85 97 03/05/25 00:13 36.7 C 79 16 154/95 H 92 03/04/25 23:58 36.8 C 81 16 131/92 95 03/04/25 23:43 36.8 C 83 17 148/87 H 95 03/04/25 23:43 36.8 C 83 17 160/90 H 95 03/04/25 23:28 36.8 C 88 17 186/82 H 95 03/04/25 23:13 36.8 C 77 16 174/100 H 95 03/04/25 23:13 36.8 C 79 16 142/104 H 95 03/04/25 23:01 79 20 174/100 H 94 03/04/25 22:55 76 14 176/122 H 95 03/04/25 22:48 78 15 176/122 H 100 03/04/25 22:40 77 20 168/103 H 100 03/04/25 22:25 79 13 169/93 H 96 03/04/25 22:15 90 20 93 03/04/25 22:12 81 22 93 03/04/25 22:10 173/95 H 03/04/25 22:10 173/95 H 03/04/25 22:09 36.8 C 80 20 173/95 H 91 03/04/25 22:08 81 03/04/25 21:54 80 22 03/04/25 21:44 37 C 85 175/108 H 95 O2 Del Method O2 Flow Rate 03/05/25 02:06 03/05/25 01:43 Nasal Cannula 2 03/05/25 01:13 Nasal Cannula 2 03/05/25 00:58 Nasal Cannula 2 03/05/25 00:43 Nasal Cannula 2 03/05/25 00:28 Nasal Cannula 2 03/05/25 00:13 Room Air 03/04/25 23:58 Room Air 03/04/25 23:43 Room Air 03/04/25 23:43 Room Air 03/04/25 23:28 Room Air 03/04/25 23:13 Room Air 03/04/25 23:13 Room Air 03/04/25 23:01 Room Air 03/04/25 22:55 Room Air 03/04/25 22:48 Room Air 03/04/25 22:40 Room Air 03/04/25 22:25 Room Air 03/04/25 22:15 03/04/25 22:12 03/04/25 22:10 03/04/25 22:10 03/04/25 22:09 Room Air 03/04/25 22:08 03/04/25 21:54 03/04/25 21:44 Room Air Diagnostic Findings Laboratory Results WBC 11.98 K/ul (4.8-10.8) H 03/04/25 21:54 RBC 4.94 M/uL (4.20-5.40) 03/04/25 21:54 Hgb 14.8 g/dl (12.0-16.0) 03/04/25 21:54 Hct 42.4 % (37.0-47.0) 03/04/25 21:54 MCV 85.8 fL (80.0-100.0) 03/04/25 21:54 MCH 30.0 pg (25.0-34.0) 03/04/25 21:54 MCHC 34.9 g/dL (32.0-36.0) 03/04/25 21:54 RDW Std Deviation 44.2 fL (36.4-46.3) 03/04/25 21:54 RDW Coeff of Fan 14.2 % (11.5-14.5) 03/04/25 21:54 Plt Count 284 K/uL (130-400) 03/04/25 21:54 MPV 12.1 fL (9.4-12.4) 03/04/25 21:54 Immature Gran % (Auto) 0.3 % 03/04/25 21:54 Neut % (Auto) 67.5 % 03/04/25 21:54 Lymph % (Auto) 18.3 % 03/04/25 21:54 [facility] % (Auto) 9.8 % 03/04/25 21:54 Eos % (Auto) 3.0 % 03/04/25 21:54 Baso % (Auto) 1.1 % 03/04/25 21:54 Neut # (Auto) 8.10 K/uL (1.40-6.50) H 03/04/25 21:54 Lymph # (Auto) 2.19 K/uL (1.20-3.40) 03/04/25 21:54 [facility] # (Auto) 1.17 K/uL (0.11-0.59) H 03/04/25 21:54 Eos # (Auto) 0.36 K/uL (0.00-0.50) 03/04/25 21:54 Baso # (Auto) 0.13 K/uL (0.00-0.20) 03/04/25 21:54 Immature Gran # (Auto) 0.03 K/uL (0.01-0.20) 03/04/25 21:54 PT 10.4 Seconds (9.0-12.0) 03/04/25 21:54 INR 1.0 (0.9-1.1) 03/04/25 21:54 APTT 26 Seconds (21-31) 03/04/25:54 PTT Ratio 1.0 03/04/25 21:54 Sodium 137 mmol/L (136-145) 03/04/25 21:54 Potassium 3.7 mmol/L (3.5-5.1) 03/04/25 21:54 Chloride 97 mmol/L (98-107) L 03/04/25 21:54 Carbon Dioxide 33 mmol/L (21-32) H 03/04/25 21:54 Anion Gap 7 (3-11) 03/04/25 21:54 BUN 13 mg/dl (6-23) 03/04/25 21:54 Creatinine 1.11 mg/dl (0.6-1.2) 03/04/25 21:54 Est Cr Clr Drug Dosing 50.0 ml/min 03/04/25 21:54 eGFR 53.47 03/04/25 21:54 BUN/Creatinine Ratio 11.7 (10-20) 03/04/25 21:54 Glucose 133 mg/dl (70-99(Fasting)) H 03/04/25 21:54 POC Glucose 121 mg/dl (70-99) H 03/04/25 21:52 Calcium 9.9 mg/dl (8.6-10.3) 03/04/25 21:54 Magnesium 1.8 mg/dl (1.7-2.4) 03/04/25 21:54 Total Bilirubin 0.5 mg/dl (0.2-1.0) 03/04/25 21:54 AST 15 U/L (13-39) 03/04/25 21:54 ALT 10 U/L (7-52) 03/04/25 21:54 Alkaline Phosphatase 92 U/L (34-104) 03/04/25 21:54 Troponin I High Sens 4.2 pg/ml (0-14) 03/04/25 21:54 Total Protein 7.7 gm/dl (6.0-8.3) 03/04/25 21:54 Albumin 4.0 gm/dl (3.4-5.0) 03/04/25 21:54 Globulin 3.7 gm/dl (2.5-4.0) 03/04/25 21:54 Albumin/Globulin Ratio 1.1 (0.9-2) 03/04/25 21:54 Urine Color Yellow 03/05/25 02:29 Urine Appearance Clear (Clear) 03/05/25 02:29 Urine pH 5.5 (4.5-7.5) 03/05/25 02:29 Ur Specific [place] > 1.045 (1.000-1.030) H 03/05/25 02:29 Urine Protein Negative (Negative) 03/05/25 02:29 Urine Glucose (UA) Negative (Negative) 03/05/25 02:29 Urine Ketones Negative (Negative) 03/05/25 02:29 Urine Blood Negative (Negative) 03/05/25 02:29 Urine Nitrite Negative (Negative) 03/05/25 02:29 Urine Bilirubin Negative (Negative) 03/05/25 02:29 Urine Urobilinogen Negative (Negative) 03/05/25 02:29 Ur Leukocyte Esterase Negative (Negative) 03/05/25 02:29 Urine Comment 03/05/25 02:29 Blood Type B Positive 03/04/25 21:57 Antibody Screen NEGATIVE 03/04/25 21:57 Impressions Chest CTA 03/04/25 21:55 Exam(s): CTA CHEST IV Amt: 120 ml [id number] EXAM: CT Angiography Chest With Intravenous Contrast CLINICAL HISTORY: Reason for exam: PE. TECHNIQUE: Axial computed tomographic angiography images of the chest with intravenous contrast. CTDI is 36.31 mGy and DLP is 1824.73 mGy-cm. Automated exposure control was utilized for the study. A dose lowering technique was utilized adhering to the principles of ALARA. MIP reconstructed images were created and reviewed. COMPARISON: No relevant prior studies available. FINDINGS: Pulmonary arteries: Unremarkable. No pulmonary embolism. Aorta: No acute findings. No thoracic aortic aneurysm. Lungs: Unremarkable. No mass. No consolidation. Pleural space: Unremarkable. No significant effusion. No pneumothorax. Heart: Unremarkable. No cardiomegaly. No significant pericardial effusion. No evidence of RV dysfunction. Bones/joints: No acute fracture. No dislocation. Soft tissues: Unremarkable. Lymph nodes: Unremarkable. No enlarged lymph nodes. IMPRESSION: Normal chest CTA. No pulmonary embolism. Electronically signed by: Donato Ravi MD 03/04/25 22:58 PM Chest X-Ray 03/04/25 21:55 Exam(s): XR CXR 1 VIEW EXAM: XR Chest, 1 View CLINICAL HISTORY: Reason for exam: neuro deficit, acute stroke suspected. TECHNIQUE: Frontal view of the chest. COMPARISON: No relevant prior studies available. FINDINGS: Lungs: Unremarkable. No consolidation. Pleural space: Unremarkable. No pneumothorax. Heart: Unremarkable. No cardiomegaly. Mediastinum: Unremarkable. Normal mediastinal contour. Bones/joints: Unremarkable. No acute fracture. IMPRESSION: Normal chest x-ray. Electronically signed by: Donato Ravi MD 03/05/25 00:[address] 03/04/25 21:55 CR Exam(s): CT HEAD Without Contrast EXAM: CT Head Without Intravenous Contrast CLINICAL HISTORY: Reason for exam: neuro deficit, acute stroke suspected. TECHNIQUE: Axial computed tomography images of the head/brain without intravenous contrast. CTDI is 36.31 mGy and DLP is 1824.73 mGy-cm. Automated exposure control was utilized for the study. A dose lowering technique was utilized adhering to the principles of ALARA. COMPARISON: 03/01/2014 FINDINGS: Brain: Chronic appearing left occipital lobe infarct. No hemorrhage. No significant white matter disease. Ventricles: Unremarkable. No ventriculomegaly. Bones/joints: Unremarkable. No acute fracture. Soft tissues: Unremarkable. Sinuses: Unremarkable as visualized. No acute sinusitis. Mastoid air cells: Unremarkable as visualized. No mastoid effusion. IMPRESSION: No acute findings in the head/brain. Chronic left occipital lobe and Communications: Call Doctor Stroke Electronically signed by: Donato Ravi MD 03/04/25 22:32 PM Head CTA 03/04/25 21:55 CR Exam(s): CTA HEAD With Contrast IV Amt: 120 ml [id number] EXAM: CT Angiography Head With Intravenous Contrast CLINICAL HISTORY: Reason for exam: neuro deficit, acute stroke suspected. TECHNIQUE: Axial computed tomographic angiography images of the head with intravenous contrast. CTDI is 36.31 mGy and DLP is 1824.73 mGy-cm. Automated exposure control was utilized for the study. A dose lowering technique was utilized adhering to the principles of ALARA. MIP reconstructed images were created and reviewed. CONTRAST: Patient received 120 ml [id number] of IV contrast COMPARISON: No relevant prior studies available. FINDINGS: Right internal carotid artery: No acute findings. Intracranial segment is patent with no significant stenosis. No aneurysm. Right anterior cerebral artery: Unremarkable. No occlusion or significant stenosis. No aneurysm. Right middle cerebral artery: Unremarkable. No occlusion or significant stenosis. No aneurysm. Right posterior cerebral artery: Unremarkable. No occlusion or significant stenosis. No aneurysm. Right vertebral artery: Unremarkable as visualized. Left internal carotid artery: No acute findings. Intracranial segment is patent with no significant stenosis. No aneurysm. Left anterior cerebral artery: Unremarkable. No occlusion or significant stenosis. No aneurysm. Left middle cerebral artery: Unremarkable. No occlusion or significant stenosis. No aneurysm. Left posterior cerebral artery: Unremarkable. No occlusion or significant stenosis. No aneurysm. Left vertebral artery: Unremarkable as visualized. Basilar artery: Unremarkable. No occlusion or significant stenosis. No aneurysm. IMPRESSION: Normal head CTA. Communications: Call Doctor Stroke Electronically signed by: Donato Ravi MD 03/04/25 22:27 PM Neck CTA 03/04/25 21:55 CR Exam(s): CTA NECK With Contrast IV Amt: 120 ml [id number] EXAM: CT Angiography Neck With Intravenous Contrast CLINICAL HISTORY: Reason for exam: neuro deficit, acute stroke suspected. TECHNIQUE: Routine carotid CT angiography protocol was performed with intravenous contrast. NASCET criteria using the distal ICAs for comparison were used for evaluation of stenoses. CTDI is 36.31 mGy and DLP is 1824.73 mGy-cm. Automated exposure control was utilized for the study. A dose lowering technique was utilized adhering to the principles of ALARA. MIP reconstructed images were created and reviewed. CONTRAST: Patient received 120 ml [id number] of IV contrast COMPARISON: None. FINDINGS: VASCULATURE: Right common carotid artery: Unremarkable. No occlusion or significant stenosis. No dissection. Right internal carotid artery: Unremarkable. Extracranial segment is patent with no occlusion or significant stenosis. No dissection. Right external carotid artery: Unremarkable. No occlusion. Right vertebral artery: Unremarkable. No occlusion or significant stenosis. No dissection. Left common carotid artery: Unremarkable. No occlusion or significant stenosis. No dissection. Left internal carotid artery: Unremarkable. Extracranial segment is patent with no occlusion or significant stenosis. No dissection. Left external carotid artery: Unremarkable. No occlusion. Left vertebral artery: Unremarkable. No occlusion or significant stenosis. No dissection. NECK: Bones/joints: Unremarkable. No acute fracture. Soft tissues: Unremarkable. Lung apices: Clear. CAROTID STENOSIS REFERENCE USING NASCET CRITERIA: % ICA stenosis = (1 - narrowest ICA diameter/diameter of distal cervical ICA) x 100. Mild - <50% stenosis. Moderate - 50-69% stenosis. Severe - 70-94% stenosis. Near occlusion - 95-99% stenosis. Occluded - 100% stenosis. IMPRESSION: Negative CTA neck. Communications: Call Doctor Stroke Electronically signed by: Donato Ravi MD 03/04/25 22:28 PM ECG Additional Comments: ECG. Sinus rhythm with first-degree AV block with PACs at rate of 80. QTc 439 Code Status & VTE Plan VTE Prophylaxis Plan VTE Prophylaxis will be ordered: Yes
[2025-03-05 02:53] LABS: Appearance Urine Clear (Clear); Glucose Urine UA Negative (Negative)
[2025-03-05] MEDS ORDERED: CARBOHYDRATES FOR HYPOGLYCEMIA PO PRN (03:44)
[2025-03-05] MEDS ORDERED: GLUCAGON FOR INJ 1 MG VIAL SQ PRN (03:44)
[2025-03-05] MEDS ORDERED: GLUCOSE 10 TAB/TUBE PO PRN (03:44)
[2025-03-05] MEDS ORDERED: LABETALOL HCL IV 5 MG/ML 20ML IV PRN (03:44)
[2025-03-05] MEDS ORDERED: PHARMACIST DISCHARGE MED REC CONSULT PRN (03:44)
[2025-03-05] MEDS ORDERED: GLUCOSE 40% GEL 15 GM TUBE PO PRN (03:44)
[2025-03-05] MEDS ORDERED: DEXTROSE 50% 50 ML SYRINGE IV PRN (03:44)
[2025-03-05] MEDS ORDERED: ALBUTEROL HFA 8 GM INHALER INH PRN (03:50)
[2025-03-05] MEDS: PREGABALIN 150 MG CAP PO STA (04:34)
[2025-03-05] MEDS: SODIUM CHLORIDE 0.9% 1,000 ML IV SCH (04:58)
[2025-03-05] MEDS: GADOBUTROL 65ML VIAL IV ONE (05:07)
[2025-03-05 06:37] LABS: Hematocrit (blood only) 35.7 % (37.0-47.0); Hemoglobin 12.8 g/dl (12.0-16.0); Immature Granulocytes # (auto) 0.04 K/uL (0.01-0.20); Immature Granulocytes % (auto) 0.5 %; Mean Corpuscular Hemoglobin 30.8 pg (25.0-34.0); Mean Corpuscular Volume 85.8 fL (80.0-100.0); Platelet Count 214 K/uL (130-400); RDW Standard Deviation 43.7 fL (36.4-46.3); Red Blood Count 4.16 M/uL (4.20-5.40); White Blood Count 8.35 K/ul (4.8-10.8)
[2025-03-05] MEDS: INSULIN ASPART PER UNIT CHARGE SC SCH (06:42)
[2025-03-05 06:54] LABS: Anion Gap 4.0 (3-11); Blood Urea Nitrogen 11.0 mg/dl (6-23); Calcium 9.0 mg/dl (8.6-10.3); Carbon Dioxide 32.0 mmol/L (21-32); Chloride 102.0 mmol/L (98-107); Cholesterol 118.0 mg/dl (0-200); Creatinine Clr Calc Pharmacy 57.0 ml/min; Glucose 108.0 mg/dl (70-99(Fasting)); HDL Cholesterol 27.0 mg/dl; Magnesium 1.7 mg/dl (1.7-2.4); Potassium 3.6 mmol/L (3.5-5.1); Sodium 138.0 mmol/L (136-145); Triglycerides 166.0 mg/dl (0-150)
--- NOTE | 2025-03-05 07:06 | Magnetic Resonance Report ---
EXAM: MR brain wo/w con CLINICAL HISTORY: acute CVA TECHNIQUE: MRI of the brain was performed with and without intravenous contrast administration (8ml gadavist). Sequences obtained include pre-contrast and post-contrast T1-weighted, T2-weighted, FLAIR (Fluid-Attenuated Inversion Recovery), DWI (Diffusion-Weighted Imaging), and ADC (Apparent Diffusion Coefficient) sequences. COMPARISON: No previous studies are available for comparison. FINDINGS: No acute infarction or areas of diffusion restriction. Left occipital area of encephalomalacia is seen ( high T2 low FLAIR, T1 signal ) with surrounding gliosis associated with mild ex vacuo dilatation of the occipital horn of the left lateral ventricle. Bilateral periventricular patchy areas and foci of signal alteration, eliciting bright T2 / FLAIR and iso to low T1 signal intensity. Scattered basal ganglia and fronto-parietal foci of altered MR signal eliciting bright T2 / FLAIR and iso to low T1 signal intensity. Post-Contrast Findings: Faint gyral enhancement is seen at the left occipital area of encephalomalacia and gliosis. No enhancing masses or lesions No abnormal enhancement of the rest of the brain parenchyma or meninges. Ventricles and Sulci: Mild dilatation of the ventricular system. The ventricular system is within normal limits without evidence of hydrocephalus. Sulci and cisternal spaces are age-appropriate. Brainstem and Cerebellum: Normal appearance of the brainstem and cerebellum without focal lesions or abnormal enhancement. Vessels: Intracranial vessels appear normal without evidence of vascular malformations or aneurysms. Skull and Calvarium: No evidence of skull vault lesions or abnormal marrow signal within the calvarium. Mild sphenoidal sinusitis is seen IMPRESSION: 1. No acute infarction or areas of diffusion restriction. 2. No evidence of acute intracranial pathology or abnormal contrast enhancement. 3. Left occipital area of encephalomalacia as detailed. 4. Age-matched involutional brain changes. 5. 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 Electronically signed by Imtiaz Nevarez 03-05-2025 07:05 AM
[2025-03-05 07:55] LABS: Hemoglobin A1C 6.3 % (4.5-5.6)
[2025-03-05] MEDS: PREGABALIN 150 MG CAP PO SCH (09:03)
[2025-03-05] MEDS: CETIRIZINE HCL 10 MG TABLET PO SCH (09:03)
[2025-03-05] MEDS: PRAVASTATIN SOD 10 MG TAB PO SCH (09:03)
--- NOTE | 2025-03-05 09:23 | Neurology Consultation ---
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 This is chronic and has been unchanged. She also had some left-sided weakness and numbness with the stroke which made improvements. She had the acute onset of recurring right sided weakness and numbness March 04 but there was no new stroke on CT or MRI of the brain. CT angiography of the head and neck were unremarkable as well. This morning she is back to baseline although she has some more dysesthesias than baseline currently. Her strength seems intact. I suspect that the significant hypertension present on admission was responsible for "bringing out" old stroke symptoms (termed poststroke recrudescence) and that she was not having a new stroke. , and symptoms, triggers of stroke recrudescence could include metabolic imbalances, medications, hypo or hypertension, anxiety stress, or infections. In her case she was clearly hypertensive and she did have some increased anxiety and depression according to the patient's daughter because she was supposed to go to court today to sign final divorce papers. TNK was given and I cannot entirely exclude that a new stroke-like event being aborted by the medication. Patient has anxiety and depression. Recommendations: 1. Patient needs a CT scan of the head 24 hours post TNK 2. Continue Brilinta as was previously prescribed after 24 hours post TNK. 3. Speech, physical, and Occupational Therapy to evaluate and treat. PT and OT will start 24 hours after TNK. 4. Control blood pressure as you are doing maintaining mean arterial pressure of 95-100. 5. Control glucose trying to lower the hemoglobin A1c to closer to 6.0. 6. Could increase pravastatin to 20 mg a day due to the elevated triglycerides however, her total cholesterol is only 118 so she does not need the increased statin. 7. Could follow-up with Dr. Duff regarding migraines (he is not seen her since March 2023. Overall, I spent a total of 120 minutes with this case including review of records, review of MRI films, direct evaluation the patient, report generation, and discussion of the case with the patient, daughter, RN, and Dr. Juares at bedside as well as Dr. Rashid, including differential diagnosis and treatment options. History of Present Illness Reason for Consultation: Patient is a 69-year-old who was asked to see at the request of Dr. Zhang, for neurologic consultation regarding strokelike symptoms. Requesting Physician: Dr. Zhang Attending Physician: Fernando Rashid MD History of Present Illness This patient is a longstanding cigarette smoker with COPD, migraines, and chronic low back pain. She was followed by Dr. Duff for migraines for years but he has not seen her since March 2023. She is post lumbosacral spine spine surgery (lumbar decompression with facetectomy and foraminotomy L3-S1, with posterior spinal fusion from L3-S1) by Dr. Quintanilla, December 07, 2010, for significant spinal stenosis and degenerative disc disease at multiple levels. She has a history of chronic myeloid leukemia on asciminib. She has some diabetes and is on Mounjaro weekly for weight loss. I have spoken with the patient's daughter via telephone who helps add to the history. In February 2024 she had elevated blood pressure and then acute onset right sided weakness/numbness with vision loss to the right. She went to a [facility] and was diagnosed with a left occipital stroke. She was discharged on Brilinta. Over time her right-sided weakness and numbness improved to close to baseline but her vision did not change. The patient was doing fairly well over time with her migraines. She gets Botox every 3 months, Ajovy monthly, and is on propranolol 240 mg ER daily. She has used Fioricet in the past as needed for migraines which does help but is encouraged not to take this. The patient has not had a bad migraine in about a year. She will get a lesser headache occasionally, for which she does not take medication. Sometime yesterday evening around 8 PM she got up to go to the bathroom and her right leg buckled and she fell. She felt that the right side of her face arm and leg were weaker in number than baseline and she could not ambulate well. Her right side felt heavy. Arrived at the emergency room March 04 at 2144 with a temperature of 37.0, pulse 85 and regular, blood pressure 175/108, and O2 saturation 95%. On examination she was noted to have some right arm and leg drift (weakness). There was decrease sensation to pin and touch in the right face arm and leg. White count was mildly elevated at 11.8 but hemoglobin hematocrit were unremarkable. CHEM profile was unremarkable although glucose was 133. Liver profile was normal. Urinalysis was unremarkable. CTA of the chest was unremarkable. Chest x-ray was unremarkable. CT scan of the head showed the old left occipital stroke and no acute changes. CT angiography of the head and of the neck were unremarkable with no evidence of vascular stenoses or anomalies. The patient was given TNK without changes in her symptoms. MRI of the brain with and without contrast showed no acute stroke. There was a somewhat large old left occipital stroke extending into the left thalamus. There was mild to moderate old small vessel ischemic disease and atrophy. I reviewed these films This morning she has no new symptoms. She feels that her strength is a little better. She has anxiety and stress. She has some dysesthesias on the right side without significant pain. She has a very mild left frontal dull headache. She is very tired but not dizzy. Morning CBC and CHEM profile were unremarkable. Hemoglobin A1c was 6.3. Triglycerides were 166, total cholesterol 118, and LDL 58. Blood pressure is 136/79 and she is afebrile. Allergies Allergy/AdvReac Type Severity Reaction Status Date / Time bacitracin Allergy Severe blisters Verified 02/06/25 15:05 Cephalosporins Allergy Severe DYSPNEA Verified 02/06/25 15:05 hydromorphone Allergy Severe DYSPNEA Verified 02/06/25 15:05 Penicillins Allergy Severe HIVES;DYSPN Verified 02/06/25 15:05 EA Sulfa (Sulfonamide Allergy Severe HIVES;DYSPNEA Verified 02/06/25 15:05 Antibiotics) (PT STATES SHE HAS TAKEN CELEBREX W/O RXN) chlorpheniramine Allergy Unknown UNABLE TO Verified 02/06/25 15:05 URINATE nickel Allergy Unknown RASH Verified 02/06/25 15:05 phenylephrine Allergy Unknown UNABLE TO Verified 02/06/25 15:05 URINATE phenylpropanolamine Allergy Unknown UNABLE TO Verified 02/06/25 15:05 URINATE phenyltoloxamine Allergy Unknown UNABLE TO Verified 02/06/25 15:05 URINATE adhesive AdvReac Intermediate RASH;ITCHIN Verified 02/06/25 15:05 G aspirin AdvReac Mild STOMACH Verified 02/06/25 15:05 BURNING nilotinib [From [facility]] AdvReac constipatio Verified 02/06/25 15:05 n Home Medications Medication Instructions Recorded Confirmed Type cetirizine 10 mg capsule (Zyrtec) 10 mg PO DAILY 04/06/18 03/04/25 History pregabalin 150 mg capsule (Lyrica) 150 mg PO BID 04/06/18 03/04/25 History oxycodone 10 mg tablet 10 mg PO Q8 PRN Pain 04/10/18 03/04/25 History potassium chloride 10 mEq 10 meq PO DAILY 04/10/18 03/04/25 History tablet,extended release(part/cryst) (Klor-Con M) albuterol sulfate 90 mcg/actuation 2 puffs inhalation Q6H PRN trouble 05/30/18 03/04/25 History breath activated powder inhaler breathing diphenhydramine HCl 25 mg capsule 25 mg PO Q4H PRN itchiness 05/30/18 03/04/25 History (Benadryl) lactobacillus combination no.8 3 3,000 mmu cells PO DAILY 05/30/18 03/04/25 His tory billion cell capsule (Adult Probiotic) loperamide 2 mg capsule (Imodium 2 mg PO Q4H PRN loose stool 05/30/18 03/04/25 History A-D) cholecalciferol (vitamin D3) 50 4,000 units PO DAILY 05/24/19 03/04/25 History mcg (2,000 unit) capsule promethazine 25 mg tablet 25 mg PO Q6H PRN Nausea And 05/24/19 03/04/25 History Vomiting magnesium hydroxide 400 mg/5 mL 5 ml PO DAILY PRN Constipation 05/06/21 03/04/25 History oral suspension (Milk of Magnesia) sumatriptan succinate 6 mg/0.5 mL 6 mg (0.5 mL) subcut ONCE PRN 10/01/21 03/04/25 Rx subcutaneous pen injector migraine headache #1 mL hydrochlorothiazide 12.5 mg capsule 12.5 mg PO DAILY 11/02/21 03/04/25 History propranolol 120 mg capsule,24 240 mg (2 x 120 mg) PO HS #60 caps 12/13/21 03/04/25 Rx hr,extended release asciminib 20 mg tablet (Scemblix) 20 mg PO BID 11/22/22 03/04/25 History tizanidine 4 mg capsule 4 mg PO BID PRN spasms 12/19/23 03/04/25 History ticagrelor 90 mg tablet (Brilinta) 90 mg PO BID 06/13/24 03/04/25 History pravastatin 10 mg tablet 10 mg PO DAILY 02/06/25 03/04/25 History tirzepatide 2.5 mg/0.5 mL 7.5 mg subcut .Weekly 02/06/25 03/04/25 History subcutaneous pen injector (Mounjaro) fremanezumab-vfrm 225 mg/1.5 mL 225 mg subcut MONTHLY 03/04/25 03/04/25 History subcutaneous auto-injector (Ajovy) lorazepam 1 mg tablet (Ativan) 1 mg PO TID PRN Anxiety 03/04/25 03/04/25 History rabeprazole 20 mg PO BID 03/04/25 03/04/25 History Patient History Medical History Sepsis Intra-abdominal abscess Intra-abdominal abscess Hypokalemia Headache Headache Arthritis Stomach problems Pneumonia Bronchitis Asthma Intractable migraine with aura without status migrainosus Leukemia Opioid dependence Lumbar facet joint syndrome Postlaminectomy syndrome of lumbosacral region On home oxygen therapy Herpes zoster involving cervical dermatome Migraine Chronic myeloid leukemia Cervicalgia Chronic migraine Surgical History History of cholecystectomy History of lumbar laminectomy S/P ovarian cystectomy S/P tonsillectomy Family History (Updated 03/05/25 @ 09:41 by Mahamed Mckeon MD) Father , in his 40s of a brain tumor (uncertain type) Brain tumor Aunt Breast cancer Mother , in her early 90s without significant chronic illness No problems noted. Social History (Updated 03/05/25 @ 09:41 by Mahamed Mckeon MD) Smoking Status: Current every day smoker Tobacco Type: Cigarettes Age Started Using Tobacco: 11; packs per day: 0.5; Cigarettes Per Day: 0.5 pk/day; Hx Alcohol Use: No Hx Substance Use: No Preferred Language: Kyrgyz Communication Ability: Effective Visual Impairment: No Limitations Hearing Ability: Normal Digital Manager Required: No Beliefs That Will Affect Care: None marital status: Legally Current Living Situation: Family Current Living Situation Comment: Jyoti- daughter current occupational status: disabled current occupation: Stop working 1998 after a work incident Feels Safe at Home: Yes Safety Concerns: Feels Safe At This Time Assistive Devices: Denture - Upper, Denture - Lower, Oxygen - at Night and Walker Review of Systems Constitutional: + fatigue and + weakness; no fever Eyes: + problem reported (Decreased vision off to the right (chronic)); no diplopia, no eye pain and no worsening vision Ear, Nose, Mouth, Throat: no ear pain, no tinnitus, no hearing loss, no dizziness, no snoring, no hoarseness and no dysphagia Respiratory: no cough and no dyspnea Cardiovascular: no chest pain, no palpitations and no lightheadedness Gastrointestinal: no abdominal pain, no nausea and no vomiting Genitourinary: no dysuria, no urinary frequency and no urinary incontinence Musculoskeletal: + back pain and + neck pain; no radicula r pain, no joint pain and no myalgia Integumentary: no rash and no lesions Neurologic: + gait abnormality, + localized weakness , + numbness and + headache(s); no generalized weakness, no tingling, no tremor(s), no abnormal movements, no abnormal speech, no confusion and no memory loss Psychiatric: + depression and + anxiety; no irritabil ity, no difficulty concentrating, no confusion and no hallucinations Endocrine: no fatigue and no flushing Hematologic / Lymphatic: no easy bleeding and no easy bruising Allergy / Immunological: no urticaria and no problem reported Exam (Neuro) Physical Exam: The patient is right-handed. The patient is awake, alert, and attentive. Speech is normal without any aphasia or dysarthria. Mentation and thought processes are reasonable, with full orientation and normal fund of knowledge. Mood and affect are normal and appropriate. Appearance and grooming are normal. Short and long-term memory are mildly impaired for short-term issues but reasonable for long-term. Pupils are 3 mm bilaterally and reactive to light. Extraocular eye muscles are intact without nystagmus. The patient has an obvious right homonymous hemianopsia to midline. The patient has dysesthesias and decreased sensation with pin and touch on the right face, including forehead, cheek, and jaw. Corneal reflexes are positive bilaterally. There was some asymmetry with a slight droop at the corner of the mouth on the right face but with voluntary smile both sides move symmetrically together. Hearing seems intact grossly to voice and finger rub bilaterally. Palate moves well without asymmetry. There is normal sternocleidomastoid and trapezius strength bilaterally. Tongue is midline with good strength bilaterally. Neck has a full range of motion with some discomfort. There are no cervical bruits bilaterally. There are no cranial or ocular bruits. Heart is without murmur. There is a regular rhythm and rate. Cervical, thoracic, and lumbar spine are mildly tender to palpation diffusely including paraspinal muscles and spinous processes. Gait was not tested and stance sitting up in bed is reasonable. With outstretched arms there is no drift. There are no resting, postural, or action tremors. There is no ataxia with finger to nose testing. There is reason facility in the hands, although the right may be slightly more clumsy than the left which is normal. No other abnormal involuntary movements are noted. Motor strength is 5/5 diffusely in the arms bilaterally including deltoids, biceps, triceps, brachioradialis, wrist flexors and extensors, sign board erector, and intrinsic hand muscles. Motor strength is 5/5 diffusely in the legs bilaterally including hip flexors, quadriceps, hamstrings, gastrocnemius, tibialis anterior, tibialis posterior, and Peroneii muscles bilaterally. Toe extensors are normal and there is good bulk in the extensor digitorum brevis muscles bilaterally. The limbs have good tone without rigidity or spasticity. There is no atrophy noted in the muscles. Muscle bulk is normal, there is no tenderness to palpation, no myotonia to percussion, and no fasciculations seen. Sensory examination reveals some decrease sensation to pin and touch with dyses thesias diffusely in the right arm and leg compared to the left which is normal. Reflexes are 2/4 in the biceps, triceps, brachioradialis, quadriceps, and Achilles tendons bilaterally. Toes are downgoing with plantar stimulation bilaterally. Peripheral pulses are present and of normal quality distally in all 4 limbs. There is no peripheral edema noted in the limbs. Results & Data Vital Signs (Past 12 Hours) Vital Signs Temp Pulse Pulse Resp BP BP BP 03/05/25 09:13 36.6 C 73 18 139/73 03/05/25 08:13 36.6 C 81 19 151/87 H 03/05/25 07:13 36.6 C 68 18 136/79 03/05/25 06:43 36.3 C L 65 18 153/76 H 03/05/25 06:43 36.6 C 67 16 115/62 03/05/25 06:13 36.6 C 70 18 130/67 03/05/25 06:00 130/67 03/05/25 06:00 130/67 03/05/25 05:54 74 20 03/05/25 05:43 36.6 C 70 18 135/81 03/05/25 05:33 70 13 03/05/25 05:23 135/81 03/05/25 05:13 36.9 C 71 18 146/88 H 03/05/25 04:43 36.6 C 69 18 173/102 H 03/05/25 04:36 72 14 03/05/25 04:13 36.6 C 70 18 132/100 03/05/25 04:09 73 13 03/05/25 04:00 36.6 C 73 16 148/100 H 03/05/25 03:43 36.6 C 71 18 178/100 H 03/05/25 03:30 74 12 03/05/25 03:30 145/80 H 03/05/25 03:30 145/80 H 03/05/25 03:15 36.8 C 81 18 126/86 03/05/25 03:13 36.7 C 70 18 126/76 03/05/25 03:00 74 12 03/05/25 03:00 129/86 03/05/25 03:00 129/86 03/05/25 02:48 74 17 03/05/25 02:45 133/76 03/05/25 02:45 133/76 03/05/25 02:45 133/76 03/05/25 02:43 36.7 C 73 20 133/76 03/05/25 02:30 145/86 H 03/05/25 02:24 77 11 L 03/05/25 02:15 147/85 H 03/05/25 02:13 36.7 C 76 16 147/85 H 03/05/25 02:12 77 10 L 03/05/25 02:06 78 03/05/25 02:00 78 17 03/05/25 02:00 171/95 H 03/05/25 02:00 171/95 H 03/05/25 01:54 81 24 03/05/25 01:43 36.7 C 81 17 132/93 03/05/25 01:30 132/93 03/05/25 01:18 86 13 03/05/25 01:15 141/83 H 03/05/25 01:15 141/83 H 03/05/25 01:15 83 14 03/05/25 01:13 36.7 C 83 17 141/83 H 03/05/25 01:03 85 23 03/05/25 01:00 149/93 H 03/05/25 01:00 149/93 H 03/05/25 00:58 36.7 C 82 17 149/93 H 03/05/25 00:43 36.7 C 81 17 154/94 H 03/05/25 00:42 80 19 03/05/25 00:28 36.7 C 83 17 134/85 03/05/25 00:15 83 12 03/05/25 00:15 154/95 H 03/05/25 00:15 154/95 H 03/05/25 00:13 36.7 C 79 16 154/95 H 03/05/25 00:12 81 21 03/04/25 23:58 36.8 C 81 16 131/92 03/04/25 23:48 78 10 L 03/04/25 23:45 148/87 H 03/04/25 23:45 148/87 H 03/04/25 23:45 148/87 H 03/04/25 23:43 36.8 C 83 17 148/87 H 03/04/25 23:43 36.8 C 83 17 160/90 H 03/04/25 23:36 82 10 L 03/04/25 23:28 36.8 C 88 17 186/82 H 03/04/25 23:21 72 26 H 03/04/25 23:16 142/104 H 03/04/25 23:16 142/104 H 03/04/25 23:16 142/104 H 03/04/25 23:13 36.8 C 77 16 174/100 H 03/04/25 23:13 36.8 C 79 16 142/104 H 03/04/25 23:01 79 20 174/100 H 03/04/25 22:55 76 14 176/122 H 03/04/25 22:48 176/122 H 03/04/25 22:48 176/122 H 03/04/25 22:48 77 16 03/04/25 22:48 78 15 176/122 H 03/04/25 22:45 173/138 H 03/04/25 22:45 173/138 H 03/04/25 22:40 77 20 168/103 H 03/04/25 22:39 79 25 H 03/04/25 22:36 78 12 03/04/25 22:25 79 13 169/93 H 03/04/25 22:20 169/93 H 03/04/25 22:15 90 20 03/04/25 22:12 81 22 03/04/25 22:10 173/95 H 03/04/25 22:10 173/95 H 03/04/25 22:09 36.8 C 80 20 173/95 H 03/04/25 22:08 81 03/04/25 21:54 80 22 03/04/25 21:44 37 C 85 175/108 H Pulse Ox O2 Del Method O2 Flow Rate 03/05/25 09:13 95 Nasal Cannula 1 03/05/25 08:13 95 Nasal Cannula 1 03/05/25 07:13 98 Nasal Cannula 2 03/05/25 06:43 98 Nasal Cannula 2 03/05/25 06:43 98 Nasal Cannula 2 03/05/25 06:13 99 Nasal Cannula 2 03/05/25 06:00 03/05/25 06:00 03/05/25 05:54 97 03/05/25 05:43 99 Nasal Cannula 2 03/05/25 05:33 100 03/05/25 05:23 03/05/25 05:13 99 Nasal Cannula 2 03/05/25 04:43 99 Nasal Cannula 2 03/05/25 04:36 98 03/05/25 04:13 97 Nasal Cannula 2 03/05/25 04:09 03/05/25 04:00 98 Nasal Cannula 2 03/05/25 03:43 99 Nasal Cannula 2 03/05/25 03:30 98 03/05/25 03:30 03/05/25 03:30 03/05/25 03:15 97 Nasal Cannula 2 03/05/25 03:13 98 Nasal Cannula 2 03/05/25 03:00 97 03/05/25 03:00 03/05/25 03:00 03/05/25 02:48 96 03/05/25 02:45 03/05/25 02:45 03/05/25 02:45 03/05/25 02:43 96 Nasal Cannula 2 03/05/25 02:30 03/05/25 02:24 97 03/05/25 02:15 03/05/25 02:13 97 Nasal Cannula 2 03/05/25 02:12 97 03/05/25 02:06 03/05/25 02:00 98 03/05/25 02:00 03/05/25 02:00 03/05/25 01:54 97 03/05/25 01:43 98 Nasal Cannula 2 03/05/25 01:30 03/05/25 01:18 98 03/05/25 01:15 03/05/25 01:15 03/05/25 01:15 97 03/05/25 01:13 98 Nasal Cannula 2 03/05/25 01:03 98 03/05/25 01:00 03/05/25 01:00 03/05/25 00:58 97 Nasal Cannula 2 03/05/25 00:43 97 Nasal Cannula 2 03/05/25 00:42 97 03/05/25 00:28 97 Nasal Cannula 2 03/05/25 00:15 92 03/05/25 00:15 03/05/25 00:15 03/05/25 00:13 92 Room Air 03/05/25 00:12 95 03/04/25 23:58 95 Room Air 03/04/25 23:48 95 03/04/25 23:45 03/04/25 23:45 03/04/25 23:45 03/04/25 23:43 95 Room Air 03/04/25 23:43 95 Room Air 03/04/25 23:36 96 03/04/25 23:28 95 Room Air 03/04/25 23:21 97 03/04/25 23:16 03/04/25 23:16 03/04/25 23:16 03/04/25 23:13 95 Room Air 03/04/25 23:13 95 Room Air 03/04/25 23:01 94 Room Air 03/04/25 22:55 95 Room Air 03/04/25 22:48 03/04/25 22:48 03/04/25 22:48 100 03/04/25 22:48 100 Room Air 03/04/25 22:45 03/04/25 22:45 03/04/25 22:40 100 Room Air 03/04/25 22:39 03/04/25 22:36 95 03/04/25 22:25 96 Room Air 03/04/25 22:20 03/04/25 22:15 93 03/04/25 22:12 93 03/04/25 22:10 03/04/25 22:10 03/04/25 22:09 91 Room Air 03/04/25 22:08 03/04/25 21:54 03/04/25 21:44 95 Room Air PG Care Time/CCT Total # of Minutes Spent Total Time Spent with Patient: Total time spent is greater than 50% in coordination of care (as documented) at patient's floor/unit and/or counseling patient: Coding Level of Care Code 96332 INT INP/OBS CARE MIN Diagnoses Stroke-like symptoms R29.90 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
--- NOTE | 2025-03-05 10:47 | Electrocardiogram Report ---
Test Reason : Blood Pressure : */* mmHG Vent. Rate : 80 BPM Atrial Rate : 80 BPM P-R Int : 224 ms QRS Dur : 76 ms QT Int : 372 ms P-R-T Axes : 86 15 49 degrees QTcB Int : 429 ms Sinus rhythm with 1st degree A-V block with Premature atrial complexes Otherwise normal ECG When compared with ECG of 21-Nov-2015 14:37, Premature atrial complexes are now Present Confirmed by Rl Virgen ([id number]) on 03/05/2025 10:47:00 AM Referred By: REFERRED SELF Confirmed By: Rl Virgen
[2025-03-05] MEDS: ACETAMINOPHEN 325 MG TAB PO PRN (13:22)
[2025-03-05] MEDS ORDERED: ONDANSETRON INJ 2 MG/ML 2 ML VIAL IV PRN (14:28)
--- NOTE | 2025-03-05 14:31 | Pharmacy Report ---
- Date of Service March 05, 2025 - Pharmacy CVA/TIA Medication Review Medications to Prevent Stroke handout has been added to the patients discharge packet. Antiplatelet(s) * Ticagrelor 90 mg PO BID to start once 24 hours out from TNKase Cholesterol * Pravastatin 10 mg PO daily * High intensity statin deferred due to cholesterol levels DVT Prophylaxis * SCD knee/thigh Therapeutic Anticoagulation * No history of Afib/Aflutter noted Type 2 Diabetes * Patient has T2DM and patient is prescribed tirzepatide
[2025-03-05] MEDS: BUTALBITAL/ACETAMIN/CAFFEINE TAB PO STA (14:52)
--- NOTE | 2025-03-05 15:14 | Communication Note ---
Patient presenting for right sided paresthesias in setting of prior stroke. Right sided weakness from prior. Deficits requiring TNK included right sided paresthesias and facial droop. No evidence of bleeding. Neurology consulted, appreciate recs. Likely recrudescence of prior stroke. Will need HTN treatment to prevent future events. Date of Service: March 05, 2025
[2025-03-05 19:27] VITALS: RESP 18
[2025-03-05] MEDS: PROPRANOLOL HCL 60 MG LA CAP PO SCH (20:15)
[2025-03-05] MEDS ORDERED: PROMETHAZINE HCL 25 MG TAB PO PRN (20:43)
[2025-03-05] MEDS: LORazepam 1 MG TAB PO PRN (21:41)
--- NOTE | 2025-03-06 00:48 | CT Scan Report ---
Exam(s): CT HEAD Without Contrast EXAM: CT Head Without Intravenous Contrast CLINICAL HISTORY: Reason for exam: 24 hour post TNK admin. eval for bleed. TECHNIQUE: Axial computed tomography images of the head/brain without intravenous contrast. CTDI is 34.77 mGy and DLP is 624.41 mGy-cm. Automated exposure control was utilized for the study. A dose lowering technique was utilized adhering to the principles of ALARA. Moderate motion artifact. COMPARISON: CT head 03/04/2025, and MRI brain 03/05/2025 FINDINGS: Brain/Ventricles: Stable, chronic left ROLL TESTER infarct. No acute hemorrhage or acute infarct. No hydrocephalus or midline shift. Stable mild atrophy and chronic white matter disease. Bones/Soft tissues: Unremarkable. Visualized Sinuses/Mastoid air cells: Unchanged. IMPRESSION: 1. No acute hemorrhage or acute abnormality. 2. Stable, chronic left ROLL TESTER territory infarct. 3. Moderate motion artifact. Electronically signed by: Camila Bunn M.D. 03/06/25 00:47 AM
[2025-03-06 04:52] LABS: Hematocrit (blood only) 38.2 % (37.0-47.0); Hemoglobin 13.2 g/dl (12.0-16.0); Immature Granulocytes # (auto) 0.02 K/uL (0.01-0.20); Immature Granulocytes % (auto) 0.3 %; Mean Corpuscular Hemoglobin 29.5 pg (25.0-34.0); Mean Corpuscular Volume 85.3 fL (80.0-100.0); Platelet Count 216 K/uL (130-400); RDW Standard Deviation 43.2 fL (36.4-46.3); Red Blood Count 4.48 M/uL (4.20-5.40); White Blood Count 7.92 K/ul (4.8-10.8)
[2025-03-06 05:09] LABS: Anion Gap 7.0 (3-11); Blood Urea Nitrogen 11.0 mg/dl (6-23); Calcium 9.4 mg/dl (8.6-10.3); Carbon Dioxide 31.0 mmol/L (21-32); Chloride 101.0 mmol/L (98-107); Creatinine Clr Calc Pharmacy 62.8 ml/min; Glucose 99.0 mg/dl (70-99(Fasting)); Potassium 3.5 mmol/L (3.5-5.1); Sodium 139.0 mmol/L (136-145)
[2025-03-06] MEDS: INSULIN ASPART PER UNIT CHARGE SC SCH (08:10)
[2025-03-06] MEDS: MAGNESIUM SULFATE / D5W 1 GM/100 ML BAG IV ONE (09:33)
--- NOTE | 2025-03-06 10:23 | Neurology Progress Note ---
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 This is chronic and has been unchanged. She also had some left-sided weakness and numbness with the stroke which made improvements. She had the acute onset of recurring right sided weakness and numbness March 04 but there was no new stroke on CT or MRI of the brain. CT angiography of the head and neck were unremarkable as well. This morning she is back to baseline including strength and sensation. Her strength seems intact. Patient has a history of significant migraine headaches in the past. I suspect her headache this morning was migraine. Repeat CT scan of the head this morning showed no acute changes. I suspect that the significant hypertension present on admission was responsible for "bringing out" old stroke symptoms (termed poststroke recrudescence) and that she was not having a new stroke. Triggers of poststroke recrudescence include metabolic imbalances, medications, hypo or hypertension, anxiety/stress, or infections. In her case she was clearly hypertensive and she did have some increased anxiety and depression TNK was given and I cannot entirely exclude that a new stroke-like event being aborted by the medication. Patient has anxiety and depression, stable today. Recommendations: 1. Continue Brilinta as was previously prescribed after 24 hours post TNK. 2. Speech, physical, and Occupational Therapy to evaluate and treat. PT and OT will start 24 hours after TNK. 3. Control blood pressure as you are doing maintaining mean arterial pressure of 95-100. 4. Control glucose trying to lower the hemoglobin A1c to closer to 6.0. 5. Continue pravastatin 10 mg daily 6. Could follow-up with Dr. Duff regarding migraines (he is not seen her since March 2023). 7. Consider IV Toradol as needed for acute headache Overall, I spent a total of 35 minutes with this case including review of records, review of CT films, direct evaluation the patient, report generation, and discussion of the case with the patient and RN at bedside as well as Dr. Nettles, including differential diagnosis and treatment options. Admission and Anticipated Discharge Date Admission Date: March 05, 2025 Subjective Patient had a significant headache this morning. Tylenol has helped it. She only has a mild headache now (1005). She is moving her limbs better and has less numbness and dysesthesia. Repeat CT scan of the head this morning appears to be stable with no acute hemorrhage (final report pending) Blood pressure is 147/83 and she is afebrile. CBC and CHEM profile were unremarkable. Echocardiogram showed some mild left ventricular hypertrophy but was otherwise unremarkable/normal Results & Data Vital Signs (Past 12 Hours) Vital Signs Temp Pulse Pulse Resp BP BP Pulse Ox 03/06/25 08:00 76 03/06/25 07:30 36.7 C 72 18 147/83 H 92 03/05/25 23:13 36.9 C 75 18 129/70 129/70 92 O2 Del Method O2 Flow Rate 03/06/25 08:00 03/06/25 07:30 Room Air 03/05/25 23:13 Nasal Cannula 2 Exam (Neuro) Physical Exam: She is awake and alert. Speech is without aphasia or dysarthria. Mood and affect are normal and appropriate. Thought processes are intact conversation Extraocular muscles are intact without nystagmus. She has the dense right homonymous hemianopsia as before. There is no facial droop and tongue is midline. Coordination is normal in the arms. Motor strength seems symmetrical in limbs both proximally and distally bilaterally. There is less dysesthesia to touch today compared to yesterday. 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
--- NOTE | 2025-03-06 10:26 | CT Scan Report ---
CT head/brain wo con CLINICAL HISTORY: 69 years-old Female with Headache. Acute headache TECHNIQUE: Multiple axial CT images of the head were obtained without contrast. A dose lowering tech nique was utilized adhering to the principles of ALARA. CT DOSE: 625.8 mGy.cm COMPARISON: Head CT 03/05/2025, 03/04/2025, brain MRI March 05, 2025. FINDINGS: No acute intracranial hemorrhage, midline shift, intracranial mass, hydrocephalus, territorial ischem ia or abnormal extra-axial collection. Involutional changes with chronic microvascular ischemic disea se. 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 The calvarium is intact. Prior bilateral lens repair. The paranasal sinuses, mastoid air cells, and m iddle ear cavities are clear. IMPRESSION: 1. No acute intracranial abnormality. 2. Stable appearance of the brain. ACT 112: Negative or not required by law. The above report was generated using voice recognition software. It may contain grammatical, syntax o r spelling errors. Electronically signed by: Valentín Munguia M.D. 03/06/2025 10:24 AM
[2025-03-06 11:04] VITALS: PULSE 75; TEMP 97.9; O2SAT 94
[2025-03-06] MEDS: TICAGRELOR 90 MG TAB PO SCH (12:44)
[2025-03-06] MEDS: hydroCHLOROthiazide 25 MG TAB PO SCH (12:44)
[2025-03-06] MEDS: KETOROLAC TROMETHAMINE 15 MG/ML VIAL IV ONE (12:46)
--- NOTE | 2025-03-06 13:19 | Hospitalist Progress Note ---
Date of Service March 06, 2025 Assessment & Plan (1) Stroke-like symptoms: Plan: 69-year-old female with past medical history significant for CVA, diabetes, migraines, hypertension, anxiety, hyperlipidemia, chronic back pain GERD, CML was brought in by daughter because of strokelike symptoms. Around 8 PM patient noticed numbness initially in the right leg and then spread to the right upper extremity and right face which prompted the daughter to bring the patient to the hospital. Patient was stroke alert. Last year patient had a headache and went to [facility] and found to have stroke.. At that time she had right-sided weakness and also bilateral peripheral vision loss. She was placed on Brilinta. She is ambulating with a rollator walker at home. But her right sided weakness much improved from previous stroke as per daughter. But today her right side was very numb. Currently patient is alert and awake. When she came in she has headache that got resolved. No runny nose or sore throat. No fevers. Complains of some chest pain . No shortness of breath. No nausea. No abdominal pain. Normal bowel and bladder movements. Daughter states after last stroke the blood pressures are mostly on the softer side. And today blood p ressure is somewhat elevated.Her vision is poor from previous last year stroke. Strokelike symptoms: Likely Poststroke recrudescence H/O CVA Chronic right homonymous hemianopsia --MRI brain:No acute infarction or areas of diffusion restriction. No evidence of acute intracranial pathology or abnormal contrast enhancement. Left occipital area of encephalomalacia as detailed. Age-matched involutional brain changes. 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 --Head CTA: Normal head CTA. --Neck CTA:Negative CTA neck. --S/P TNK --Repeat CT head post TNK:No acute hemorrhage or acute abnormality. Stable, chronic left PROVIDER RELATIONS COORDINATOR territory infarct. --ECHO: EF 60 to 65%. Mild concentric LVH. Aortic valve sclerosis mild, without significant stenosis. Trace tricuspid regurgitation. Injection of contrast documented no interatrial shunt -- Lipid panel: Total cholesterol 118, LDL 58 Added amlodipine, restarted lisinopril and continue HCTZ for better control of blood pressure Anxiety, depression from social discharge likely contributing as well Appreciate neurology input Continue Brilinta, statin PT OT eval Plan to be discharged home. Advised to follow-up with neurology on discharge History of migraines On propranolol On Ajovy monthly which will be held Adjusted medications for better blood pressure control Will start on magnesium, vitamin B2 Hypertension Continue HCTZ, propranolol Resume lisinopril Added amlodipine Monitor blood pressure and adjust medication as needed Chronic back pain Continue home medications DM II Hold Mounjaro Sliding scale Monitor BGs History of CML In remission as per daughter Was on Asciminib DVT prophylaxis SCDs CODE STATUS Full code Disposition Home Admission and Anticipated Discharge Date Admission Date: March 05, 2025 Subjective Patient is seen and examined at bedside States having headache today which improved with medications Discussed with neurology via Petros text today Reports right leg weakness from prior stroke Also reports intermittent right upper extremity numbness Denies any chest pain, dyspnea, nausea, vomiting, abdominal pain Prefers to be discharged home today Review of Systems Review of Systems: All systems reviewed & are unremarkable except as noted in Subjective Physical Exam Physical Exam: Physical Exam: Vitals signs as noted above General Appearance:Moderately built and nourished, no apparent distress Head: normocephalic, Atraumatic Eyes: normal inspection, EOMI Neck: supple, Trachea midline Respiratory/Chest: Normal breath sounds, CTA, No accessory muscle use Cardiovascular: S1, S2, No murmur Abdomen/GI:Soft, Non tender, Bowel sounds present Extremities/Musculoskeletal:normal inspection, no edema Neurologic/Psych:AAOX3, + right hemianopsia, mildly decreased sensation on right, grossly no focal neurological deficits Skin: normal color, warm Results & Data Results & Data Vital Signs (Past 12 Hours) Vital Signs Temp Pulse Pulse Resp BP Pulse Ox O2 Del Method 03/06/25 11:02 36.6 C 75 18 156/90 H 94 Room Air 03/06/25 08:00 76 03/06/25 07:30 36.7 C 72 18 147/83 H 92 Room Air Laboratory Results Short CBC 03/06/25 Range/Units 04:33 WBC 7.92 (4.8-10.8) K/ul Hgb 13.2 (12.0-16.0) g/dl Hct 38.2 (37.0-47.0) % Plt Count 216 (130-400) K/uL BMP 03/06/25 04:33 Sodium 139 Potassium 3.5 Chloride 101 Carbon Dioxide 31 BUN 11 Creatinine 0.88 Glucose 99 Calcium 9.4
[2025-03-06] MEDS ORDERED: STROKE PATIENT DISCHARGE STA (13:28)
--- NOTE | 2025-03-06 13:45 | Discharge Summary ---
Date of Service March 06, 2025 Admission HPI Per Admitting Provider 69-year-old female unassigned patient with past medical history significant for CVA, diabetes, migraines, hypertension, anxiety, hyperlipidemia, chronic back pain GERD, CML was brought in by daughter because of strokelike symptoms. Around 8 PM patient noticed numbness initially in the right leg and then spread to the right upper extremity and right face which prompted the daughter to bring the patient to the hospital. Patient was stroke alert. Last year patient had a headache and went to [facility] and found to have stroke.. At that time she had right-sided weakness and also bilateral peripheral vision loss. She was placed on Brilinta. She is ambulating with a rollator walker at home. But her right sided weakness much improved from previous stroke as per daughter. But today her right side was very numb. Currently patient is alert and awake. When she came in she has headache that got resolved. No runny nose or sore throat. No fevers. Denies any chest pain or shortness of breath. No nausea. No abdominal pain. Normal bowel and bladder movements. Daughter states after last stroke the blood pressures are mostly on the softer side. And today blood pressure is somewhat elevated. Her vision is poor from previous last year stroke. Past medical history. As mentioned above. Past surgical history. Back surgeries. Right knee surgery. Tubal ligations. Ovarian cystectomy. Cholecystectomy. Social history. Currently smoking half pack a day before used to smoke more than 1 pack per smoking's for last 50 years. Alcohol rarely. No drug use. Family history. Father had a brain tumor. Aunt had breast cancer. Mother had dementia. Admission Exam Per Admitting Provider General- Not in acute distress Head- atraumatic. Mild right facial droop Eyes- PERRL. ENT- oropharynx clear Neck- supple, no JVD. Lungs- clear to auscultation no wheezing or crackles Heart- regular rhythm; no murmur, no gallop. Abdomen- normal bowel sounds, soft, nontender, no distension Extremities- no pretibial edema, no erythema seen. Neuro- alert, oriented PERRL, Mild right facial droop; no dysarthria; power 3/5 right lower extremity 4/5 right upper extremity, 5/5 left extremities, no pronator drift, coordination of movements ok. decreased sensation on right side. Principal Diagnosis Strokelike symptoms Right homonymous hemianopsia Hypertension Depression with anxiety Discharge Data Allergies Allergy/AdvReac Type Severity Reaction Status Date / Time bacitracin Allergy Severe blisters Verified 02/06/25 15:05 Cephalosporins Allergy Severe DYSPNEA Verified 02/06/25 15:05 hydromorphone Allergy Severe DYSPNEA Verified 02/06/25 15:05 Penicillins Allergy Severe HIVES;DYSPN Verified 02/06/25 15:05 EA Sulfa (Sulfonamide Allergy Severe HIVES;DYSPNEA Verified 02/06/25 15:05 Antibiotics) (PT STATES SHE HAS TAKEN CELEBREX W/O RXN) chlorpheniramine Allergy Unknown UNABLE TO Verified 02/06/25 15:05 URINATE nickel Allergy Unknown RASH Verified 02/06/25 15:05 phenylephrine Allergy Unknown UNABLE TO Verified 02/06/25 15:05 URINATE phenylpropanolamine Allergy Unknown UNABLE TO Verified 02/06/25 15:05 URINATE phenyltoloxamine Allergy Unknown UNABLE TO Verified 02/06/25 15:05 URINATE adhesive AdvReac Intermediate RASH;ITCHIN Verified 02/06/25 15:05 G aspirin AdvReac Mild STOMACH Verified 02/06/25 15:05 BURNING nilotinib [From Tasigna] AdvReac constipatio Verified 02/06/25 15:05 n Consultations 03/04/25 23:32 ED Decision to Admit Stat 03/05/25 03:44 Consult Contract Accountant Routine 03/05/25 08:00 Consult Neurology Routine Procedures Performed Laboratory Results WBC 7.92 K/ul (4.8-10.8) 03/06/25 04:33 RBC 4.48 M/uL (4.20-5.40) 03/06/25 04:33 Hgb 13.2 g/dl (12.0-16.0) 03/06/25 04:33 POC Hgb 15.0 g/dl (12.0-16.0) 03/04/25 21:55 Hct 38.2 % (37.0-47.0) 03/06/25 04:33 POC Hct 44 % (37-47) 03/04/25 21:55 MCV 85.3 fL (80.0-100.0) 03/06/25 04:33 MCH 29.5 pg (25.0-34.0) 03/06/25 04:33 MCHC 34.6 g/dL (32.0-36.0) 03/06/25 04:33 RDW Std Deviation 43.2 fL (36.4-46.3) 03/06/25 04:33 RDW Coeff of Fan 13.7 % (11.5-14.5) 03/06/25 04:33 Plt Count 216 K/uL (130-400) 03/06/25 04:33 MPV 11.8 fL (9.4-12.4) 03/06/25 04:33 Immature Gran % (Auto) 0.3 % 03/06/25 04:33 Neut % (Auto) 63.5 % 03/06/25 04:33 Lymph % (Auto) 22.9 % 03/06/25 04:33 [place] % (Auto) 9.0 % 03/06/25 04:33 Eos % (Auto) 3.3 % 03/06/25 04:33 Baso % (Auto) 1.0 % 03/06/25 04:33 Neut # (Auto) 5.04 K/uL (1.40-6.50) 03/06/25 04:33 Lymph # (Auto) 1.81 K/uL (1.20-3.40) 03/06/25 04:33 [place] # (Auto) 0.71 K/uL (0.11-0.59) H 03/06/25 04:33 Eos # (Auto) 0.26 K/uL (0.00-0.50) 03/06/25 04:33 Baso # (Auto) 0.08 K/uL (0.00-0.20) 03/06/25 04:33 Immature Gran # (Auto) 0.02 K/uL (0.01-0.20) 03/06/25 04:33 PT 10.4 Seconds (9.0-12.0) 03/04/25 21:54 INR 1.0 (0.9-1.1) 03/04/25 21:54 APTT 26 Seconds (21-31) 03/04/25 21:54 PTT Ratio 1.0 03/04/25 21:54 POC Sodium 138 mmol/L (135-144) 03/04/25 21:55 Sodium 139 mmol/L (136-145) 03/06/25 04:33 POC Potassium 3.8 mmol/L (3.3-5.0) 03/04/25 21:55 Potassium 3.5 mmol/L (3.5-5.1) 03/06/25 04:33 POC Chloride 96 mmol/L (101-112) L 03/04/25 21:55 Chloride 101 mmol/L (98-107) 03/06/25 04:33 Carbon Dioxide 31 mmol/L (21-32) 03/06/25 04:33 POC Total CO2 31 mmol/L (24-31) 03/04/25 21:55 Anion Gap 7 (3-11) 03/06/25 04:33 POC Anion Gap 17.0 mmol/L (16-25) 03/04/25 21:55 POC BUN 13 mg/dl (7-18) 03/04/25 21:55 BUN 11 mg/dl (6-23) 03/06/25 04:33 Creatinine 0.88 mg/dl (0.6-1.2) 03/06/25 04:33 POC Creatinine 1.2 mg/dl (0.6-1.3) 03/04/25 21:55 Est Cr Clr Drug Dosing 62.8 ml/min 03/06/25 04:33 eGFR 70.65 03/06/25 04:33 BUN/Creatinine Ratio 12.5 (10-20) 03/06/25 04:33 Glucose 99 mg/dl (70-99(Fasting)) 03/06/25 04:33 POC Glucose 118 mg/dl (70-99) H 03/06/25 11:01 POC Glucose (other) 131 mg/dl (70-99) H 03/04/25 21:55 Estimat Average Glucose 134 mg/dl 03/05/25 06:02 Hemoglobin A1c 6.3 % (4.5-5.6) H 03/05/25 06:02 Calcium 9.4 mg/dl (8.6-10.3) 03/06/25 04:33 POC Ioniz Calcium [place] 1.16 mmol/l (1.12-1.32) 03/04/25 21:55 Magnesium 1.7 mg/dl (1.7-2.4) 03/05/25 06:02 Total Bilirubin 0.5 mg/dl (0.2-1.0) 03/04/25 21:54 AST 15 U/L (13-39) 03/04/25 21:54 ALT 10 U/L (7-52) 03/04/25 21:54 Alkaline Phosphatase 92 U/L (34-104) 03/04/25 21:54 Troponin I High Sens 3.2 pg/ml (0-14) 03/05/25 16:38 Total Protein 7.7 gm/dl (6.0-8.3) 03/04/25 21:54 Albumin 4.0 gm/dl (3.4-5.0) 03/04/25 21:54 Globulin 3.7 gm/dl (2.5-4.0) 03/04/25 21:54 Albumin/Globulin Ratio 1.1 (0.9-2) 03/04/25 21:54 Triglycerides 166 mg/dl (0-150) H 03/05/25 06:02 Cholesterol 118 mg/dl (0-200) 03/05/25 06:02 LDL Cholesterol, Calc 58 mg/dl 03/05/25 06:02 VLDL Cholesterol, Calc 33 mg/dl (0-30) H 03/05/25 06:02 HDL Cholesterol 27 mg/dl 03/05/25 06:02 Cholesterol/HDL Ratio 4.4 (0-5) 03/05/25 06:02 Urine Color Yellow 03/05/25 02:29 Urine Appearance Clear (Clear) 03/05/25 02:29 Urine pH 5.5 (4.5-7.5) 03/05/25 02:29 Ur Specific [place] > 1.045 (1.000-1.030) H 03/05/25 02:29 Urine Protein Negative (Negative) 03/05/25 02:29 Urine Glucose (UA) Negative (Negative) 03/05/25 02:29 Urine Ketones Negative (Negative) 03/05/25 02:29 Urine Blood Negative (Negative) 03/05/25 02: Urine Nitrite Negative (Negative) 03/05/25 02:29 Urine Bilirubin Negative (Negative) 03/05/25 02:29 Urine Urobilinogen Negative (Negative) 03/05/25 02:29 Ur Leukocyte Esterase Negative (Negative) 03/05/25 02:29 Urine Comment 03/05/25 02:29 Nasal Screen MRSA (PCR) Negative (Negative) 03/05/25 Unknown Blood Type B Positive 03/04/25 21:57 Antibody Screen NEGATIVE 03/04/25 21:57 Impressions Chest CTA 03/04/25 21:55 Exam(s): CTA CHEST IV Amt: 120 ml [id number] EXAM: CT Angiography Chest With Intravenous Contrast CLINICAL HISTORY: Reason for exam: PE. TECHNIQUE: Axial computed tomographic angiography images of the chest with intravenous contrast. CTDI is 36.31 mGy and DLP is 1824.73 mGy-cm. Automated exposure control was utilized for the study. A dose lowering technique was utilized adhering to the principles of ALARA. MIP reconstructed images were created and reviewed. COMPARISON: No relevant prior studies available. FINDINGS: Pulmonary arteries: Unremarkable. No pulmonary embolism. Aorta: No acute findings. No thoracic aortic aneurysm. Lungs: Unremarkable. No mass. No consolidation. Pleural space: Unremarkable. No significant effusion. No pneumothorax. Heart: Unremarkable. No cardiomegaly. No significant pericardial effusion. No evidence of RV dysfunction. Bones/joints: No acute fracture. No dislocation. Soft tissues: Unremarkable. Lymph nodes: Unremarkable. No enlarged lymph nodes. IMPRESSION: Normal chest CTA. No pulmonary embolism. Electronically signed by: Donato Ravi MD 03/04/25 22:58 PM Chest X-Ray 03/04/25 21:55 Exam(s): XR CXR 1 VIEW EXAM: XR Chest, 1 View CLINICAL HISTORY: Reason for exam: neuro deficit, acute stroke suspected. TECHNIQUE: Frontal view of the chest. COMPARISON: No relevant prior studies available. FINDINGS: Lungs: Unremarkable. No consolidation. Pleural space: Unremarkable. No pneumothorax. Heart: Unremarkable. No cardiomegaly. Mediastinum: Unremarkable. Normal mediastinal contour. Bones/joints: Unremarkable. No acute fracture. IMPRESSION: Normal chest x-ray. Electronically signed by: Donato Ravi MD 03/05/25 00:04 AM Head CTA 03/04/25 21:55 CR Exam(s): CTA HEAD With Contrast IV Amt: 120 ml [id number] EXAM: CT Angiography Head With Intravenous Contrast CLINICAL HISTORY: Reason for exam: neuro deficit, acute stroke suspected. TECHNIQUE: Axial computed tomographic angiography images of the head with intravenous contrast. CTDI is 36.31 mGy and DLP is 1824.73 mGy-cm. Automated exposure control was utilized for the study. A dose lowering technique was utilized adhering to the principles of ALARA. MIP reconstructed images were created and reviewed. CONTRAST: Patient received 120 ml [id number] of IV contrast COMPARISON: No relevant prior studies available. FINDINGS: Right internal carotid artery: No acute findings. Intracranial segment is patent with no significant stenosis. No aneurysm. Right anterior cerebral artery: Unremarkable. No occlusion or significant stenosis. No aneurysm. Right middle cerebral artery: Unremarkable. No occlusion or significant stenosis. No aneurysm. Right posterior cerebral artery: Unremarkable. No occlusion or significant stenosis. No aneurysm. Right vertebral artery: Unremarkable as visualized. Left internal carotid artery: No acute findings. Intracranial segment is patent with no significant stenosis. No aneurysm. Left anterior cerebral artery: Unremarkable. No occlusion or significant stenosis. No aneurysm. Left middle cerebral artery: Unremarkable. No occlusion or significant stenosis. No aneurysm. Left posterior cerebral artery: Unremarkable. No occlusion or significant stenosis. No aneurysm. Left vertebral artery: Unremarkable as visualized. Basilar artery: Unremarkable. No occlusion or significant stenosis. No aneurysm. IMPRESSION: Normal head CTA. Communications: Call Doctor Stroke Electronically signed by: Donato Ravi MD 03/04/25 22:27 PM Neck CTA 03/04/25 21:55 CR Exam(s): CTA NECK With Contrast IV Amt: 120 ml [id number] EXAM: CT Angiography Neck With Intravenous Contrast CLINICAL HISTORY: Reason for exam: neuro deficit, acute stroke suspected. TECHNIQUE: Routine carotid CT angiography protocol was performed with intravenous contrast. NASCET criteria using the distal ICAs for comparison were used for evaluation of stenoses. CTDI is 36.31 mGy and DLP is 1824.73 mGy-cm. Automated exposure control was utilized for the study. A dose lowering technique was utilized adhering to the principles of ALARA. MIP reconstructed images were created and reviewed. CONTRAST: Patient received 120 ml [id number] of IV contrast COMPARISON: None. FINDINGS: VASCULATURE: Right common carotid artery: Unremarkable. No occlusion or significant stenosis. No dissection. Right internal carotid artery: Unremarkable. Extracranial segment is patent with no occlusion or significant stenosis. No dissection. Right external carotid artery: Unremarkable. No occlusion. Right vertebral artery: Unremarkable. No occlusion or significant stenosis. No dissection. Left common carotid artery: Unremarkable. No occlusion or significant stenosis. No dissection. Left internal carotid artery: Unremarkable. Extracranial segment is patent with no occlusion or significant stenosis. No dissection. Left external carotid artery: Unremarkable. No occlusion. Left vertebral artery: Unremarkable. No occlusion or significant stenosis. No dissection. NECK: Bones/joints: Unremarkable. No acute fracture. Soft tissues: Unremarkable. Lung apices: Clear. CAROTID STENOSIS REFERENCE USING NASCET CRITERIA: % ICA stenosis = (1 - narrowest ICA diameter/diameter of distal cervical ICA) x 100. Mild - <50% stenosis. Moderate - 50-69% stenosis. Severe - 70-94% stenosis. Near occlusion - 95-99% stenosis. Occluded - 100% stenosis. IMPRESSION: Negative CTA neck. Communications: Call Doctor Stroke Electronically signed by: Donato Ravi MD 03/04/25 22:28 PM Brain MRI 03/05/25 03:44 EXAM: MR brain wo/w con CLINICAL HISTORY: acute CVA TECHNIQUE: MRI of the brain was performed with and without intravenous contrast administration (8ml gadavist). Sequences obtained include pre-contrast and post-contrast T1-weighted, T2-weighted, FLAIR (Fluid-Attenuated Inversion Recovery), DWI (Diffusion-Weighted Imaging), and ADC (Apparent Diffusion Coefficient) sequences. COMPARISON: No previous studies are available for comparison. FINDINGS: No acute infarction or areas of diffusion restriction. Left occipital area of encephalomalacia is seen ( high T2 low FLAIR, T1 signal ) with surrounding gliosis associated with mild ex vacuo dilatation of the occipital horn of the left lateral ventricle. Bilateral periventricular patchy areas and foci of signal alteration, eliciting bright T2 / FLAIR and iso to low T1 signal intensity. Scattered basal ganglia and fronto-parietal foci of altered MR signal eliciting bright T2 / FLAIR and iso to low T1 signal intensity. Post-Contrast Findings: Faint gyral enhancement is seen at the left occipital area of encephalomalacia and gliosis. No enhancing masses or lesions No abnormal enhancement of the rest of the brain parenchyma or meninges. Ventricles and Sulci: Mild dilatation of the ventricular system. The ventricular system is within normal limits without evidence of hydrocephalus. Sulci and cisternal spaces are age-appropriate. Brainstem and Cerebellum: Normal appearance of the brainstem and cerebellum without focal lesions or abnormal enhancement. Vessels: Intracranial vessels appear normal without evidence of vascular malformations or aneurysms. Skull and Calvarium: No evidence of skull vault lesions or abnormal marrow signal within the calvarium. Mild sphenoidal sinusitis is seen IMPRESSION: 1. No acute infarction or areas of diffusion restriction. 2. No evidence of acute intracranial pathology or abnormal contrast enhancement. 3. Left occipital area of encephalomalacia as detailed. 4. Age-matched involutional brain changes. 5. 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 Electronically signed by Imtiaz Nevarez 03-05-2025 07:[address] 03/06/25 08:17 CT head/brain wo con CLINICAL HISTORY: 69 years-old Female with Headache. Acute headache TECHNIQUE: Multiple axial CT images of the head were obtained without contrast. A dose lowering technique was utilized adhering to the principles of ALARA. CT DOSE: 625.8 mGy.cm COMPARISON: Head CT 03/05/2025, 03/04/2025, brain MRI March 05, 2025. FINDINGS: No acute intracranial hemorrhage, midline shift, intracranial mass, hydrocephalus, territorial ischemia or abnormal extra-axial collection. Involutional changes with chronic microvascular ischemic disease. Encephalomalacia related to chronic left [employer] OF [employer]SPORTATION infarct. The calvarium is intact. Prior bilateral lens repair. The paranasal sinuses, mastoid air cells, and middle ear cavities are clear. IMPRESSION: 1. No acute intracranial abnormality. 2. Stable appearance of the brain. ACT 112: Negative or not required by law. The above report was generated using voice recognition software. It may contain grammatical, syntax or spelling errors. Electronically signed by: Valentín Munguia M.D. 03/06/2025 10:24 AM Ordered Studies 03/04/25 21:55 CT angio chest PE protocol Stat CT angio head w con Stat CT angio neck with con Stat CT head/brain wo con Stat 03/05/25 03:44 MR brain wo/w con Urgent 03/05/25 23:30 CT head/brain wo con Stat 03/06/25 08:17 CT head/brain wo con Urgent Hospital Course (1) Stroke-like symptoms: 69-year-old female with past medical history significant for CVA, diabetes, migraines, hypertension, anxiety, hyperlipidemia, chronic back pain GERD, CML was brought in by daughter because of strokelike symptoms. Around 8 PM patient noticed numbness initially in the right leg and then spread to the right upper extremity and right face which prompted the daughter to bring the patient to the hospital. Patient was stroke alert. Last year patient had a headache and went to [facility] and found to have stroke.. At that time she had right-sided weakness and also bilateral peripheral vision loss. She was placed on Brilinta. She is ambulating with a rollator walker at home. But her right sided weakness much improved from previous stroke as per daughter. But today her right side was very numb. Currently patient is alert and awake. When she came in she has headache that got resolved. No runny nose or sore throat. No fevers. Complains of some chest pain . No shortness of breath. No nausea. No abdominal pain. Normal bowel and bladder movements. Daughter states after last stroke the blood pressures are mostly on the softer side. And today blood pressure is somewhat elevated.Her vision is poor from previous last year stroke. Strokelike symptoms: Likely Poststroke recrudescence H/O CVA Chronic right homonymous hemianopsia --MRI brain:No acute infarction or areas of diffusion restriction. No evidence of acute intracranial pathology or abnormal contrast enhancement. Left occipital area of encephalomalacia as detailed. Age-matched involutional brain changes. 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 --Head CTA: Normal head CTA. --Neck CTA:Negative CTA neck. --S/P TNK --Repeat CT head post TNK:No acute hemorrhage or acute abnormality. Stable, chronic left [employer] territory infarct. --ECHO: EF 60 to 65%. Mild concentric LVH. Aortic valve sclerosis mild, without significant stenosis. Trace tricuspid regurgitation. Injection of contrast documented no interatrial shunt -- Lipid panel: Total cholesterol 118, LDL 58 Added amlodipine, restarted lisinopril and continue HCTZ for better control of blood pressure Anxiety, depression from social discharge likely contributing as well Appreciate neurology input Continue Brilinta, statin PT OT eval Plan to be discharged home. Advised to follow-up with neurology on discharge History of migraines On propranolol On Ajovy monthly which will be held Adjusted medications for better blood pressure control Will start on magnesium, vitamin B2 Hypertension Continue HCTZ, propranolol Resume lisinopril Added amlodipine Monitor blood pressure and adjust medication as needed Chronic back pain Continue home medications DM II Hold Mounjaro Sliding scale Monitor BGs History of CML In remission as per daughter Was on Asciminib DVT prophylaxis SCDs CODE STATUS Full code Disposition Home Total Time Total Time Spent Total Time Spent (In Minutes): 53 minutes Discharge Plan Discharge Items Patient Disposition: Home - Self-Care Reason For Visit: ACUTE CVA Discharge Diagnosis: Strokelike symptoms Right homonymous hemianopsia Hypertension Depression with anxiety Condition on Discharge: Fair Activity: Per Instructions section Exercise/Sports: Gradually increase as tolerated Non-emergency contact: Primary Care Provider and Neurologist Call non-emergency contact if: you have any medication questions, your symptoms worsen, your pain is concerning for you and you have a fever Follow-up/Referrals: Eugenia Molina CRNP [Primary Care Provider] - 03/13/25 12:30 pm Diet: Carb Consistent or DM2 and Heart Healthy Diet Texture: Dental soft (bite-sized) Angela Attending Provider Instructions: -- Follow-up with your primary care physician Eugenia MORAN on 03/13/2024 at 2:30 PM as scheduled -- Follow-up with your neurologist in 2 weeks as recommended -- Monitor your blood pressure regularly as advised. Discuss with your primary care physician for further adjustment of medications as needed. Seek immediate medical attention if your symptoms reoccur or worsen Please review medication list provided on discharge for any medication changes as instructed. Please call if you have any questions or problems. You can reach a [facility] hospitalist on duty at [facility] 24 hours a day by calling [phone] Angela Metallurgy Teacher Provider Instructions: Risk Factors for Stroke: You can reduce your chances of stroke by working with your medical provider to adopt a healthy lifestyle. Some specific ways to lower your chance of stroke are: * If you are a smoker, now is the time to stop smoking cigarettes * If you are diabetic, improve the control of your blood sugars * Avoid excessive amounts of alcohol * Control high blood pressure * Lose weight if you are overweight * Be sure to lead an active lifestyle * Eat a healthy diet low in salt, cholesterol and fat You should know about other risk factors for stroke that you are unable to control. These include: * Age 55 years or older * Male gender * Certain racial groups: , or / * Family History of Stroke, Mini stroke or Heart Attack * Sickle Cell Disease Follow Up: It is important for you to keep your follow up appointments with your medical provider. Who to Call and When: Medical Emergencies: Call 911 immediately if you experience any of the following warning signs and symptoms of Stroke: * Sudden numbness or weakness of the face, arm or leg, especially on one side of the body * Sudden confusion, trouble speaking or understanding * Sudden trouble seeing in one or both eyes * Sudden trouble walking, dizziness, loss of balance or coordination * Sudden severe headache with no cause Do not delay calling 911 if you experience any warning signs or symptoms of a stroke. Delay in seeking medical attention may affect what treatments can be given to you. . Pending Studies at Discharge: No Stand-Alone Forms: My [facility] [employer], Smoking Cessation, Medications to Prevent Stroke Medications and DC Order Prescriptions: New amlodipine 5 mg Tablet 5 mg PO QAM Qty: 30 0RF magnesium oxide 400 mg magnesium tablet 400 mg PO DAILY Qty: 30 0RF riboflavin (vitamin B2) 400 mg tablet 400 mg PO DAILY Qty: 30 0RF Continued magnesium hydroxide [Milk of Magnesia] 400 mg/5 mL suspension 5 ml PO DAILY PRN (Reason: Constipation) hydrochlorothiazide 12.5 mg capsule 12.5 mg PO DAILY Brilinta 90 mg tablet 90 mg PO BID Mounjaro 2.5 mg/0.5 mL pen injector 7.5 mg subcut .Weekly pregabalin [Lyrica] 150 mg capsule 150 mg PO BID cetirizine [Zyrtec] 10 mg capsule 10 mg PO DAILY oxycodone 10 mg tablet 10 mg PO Q8 PRN (Reason: Pain) potassium chloride [Klor-Con M10] 10 mEq tablet,ER particles/crystals 10 meq PO DAILY loperamide [Imodium A-D] 2 mg capsule 2 mg PO Q4H PRN (Reason: loose stool) cholecalciferol (vitamin D3) 50 mcg (2,000 unit) capsule 4,000 units PO DAILY lactobacillus combination no.8 [Adult Probiotic] 3 billion cell capsule 3,000 mmu cells PO DAILY albuterol sulfate 90 mcg/actuation aerosol powdr breath activated 2 puffs INH Q6H PRN (Reason: trouble breathing) diphenhydramine HCl [Benadryl] 25 mg capsule 25 mg PO Q4H PRN (Reason: itchiness) Scemblix 20 mg tablet 20 mg PO BID tizanidine 4 mg capsule 4 mg PO BID PRN (Reason: spasms) pravastatin 10 mg tablet 10 mg PO DAILY propranolol 120 mg capsule,extended release 24 hr 240 mg PO HS Qty: 60 5RF promethazine 25 mg tablet 25 mg PO Q6H PRN (Reason: Nausea And Vomiting) lorazepam [Ativan] 1 mg Tablet 1 mg PO TID PRN (Reason: Anxiety) Ajovy Autoinjector 225 mg/1.5 mL auto-injector 225 mg SUBCUT MONTHLY rabeprazole 20 mg PO BID Changed lisinopril 20 mg tablet 20 mg PO DAILY Qty: 30 0RF Held sumatriptan succinate 6 mg/0.5 mL pen injector 6 mg subcut ONCE PRN (Reason: migraine headache) Qty: 1 5RF Hold Instructions: Hold taking this medication until further recommendations from your neurologist Discharge Orders: Discharge Order (Routine); Ordered 03/06/25 Ordered By: Ishmael Horn/Other Patient Handouts: Managing Type 2 Diabetes Admission Data Admit Date/Time: 03/05/25 02:31 Attending Provider: Ishmael Nettles Admit Provider: Eugene Zhang Primary Care Provider: Eugenia Molina Other Providers: Eugene Zhang; Jemal Juares; Mono Duff
[2025-03-06 14:17] VITALS: BP 129/70
== END 2025-03-06 14:18 | disposition home or self-care (01) | DRG 92 ==
LOC: ED 21:43 → 1E 03-05 02:31 → SUATTDRO 03-05 02:31 → 1E 03-05 03:15 → 2S 03-06 06:55